=== PATIENT | male | born 1960 | race Caucasian/White ===

== ENCOUNTER 2019-06-05 01:03 | Inpatient (IN) ==
[2019-06-05] MEDS ORDERED: Morphine Sulfate 2 MG/ML SYRINGE IVP ONE (05:08)
[2019-06-05] MEDS ORDERED: *HR* Heparin 5,000 UNIT/ML VIAL IVP ONE ×2 (05:12→05:28)
[2019-06-05] MEDS ORDERED: *HR* Heparin 5,000 UNIT/ML VIAL IVP PRN ×4 (05:12→05:28)
[2019-06-05] MEDS ORDERED: Heparin 25,000 UNIT/250 ML D5W 25,000 UNIT/250 ML IV.SOLN IVC SCH (05:15)
[2019-06-05] MEDS ORDERED: predniSONE 20 MG TABLET PO ONE (05:23)
[2019-06-05] MEDS ORDERED: Azithromycin 500 MG in 0.9 % Sodium Chloride 250 ML IVPB SCH (06:00)
[2019-06-05 06:10] LABS: Basophils % 0.1 %; Eosinophils % 0.1 %; Hematocrit 37.4 % (37.5-50.1); Immature Granulocytes % 2.2 % (0-4); Lymphocytes # 0.5 K/mcL (0.6-4.6); Lymphocytes % 3.1 %; Mean Corpuscular HGB Conc 32.1 g/dL (31.6-35.5); Mean Corpuscular Hemoglobin 27.6 pg (28.0-33.3); Mean Platelet Volume 9.6 fL (9.4-12.4); Monocytes # 0.2 K/mcL (0.0-1.3); Neutrophils # 14.3 K/mcL (1.6-8.9); Platelet Count 171 K/mcL (140-400); Red Blood Count 4.35 M/mcL (4.19-5.50); Red Cell Distribution Width 13.4 % (11.5-14.5); Segmented Neutrophils % 93.5 %; White Blood Count 15.3 K/mcL (4.3-11.1)
[2019-06-05 06:14] LABS: Prothrombin Time 11.7 Seconds (9.4-12.1)
[2019-06-05] MEDS: Ipratropium/Albuterol Neb 3 ML IH SCH ×4 (06:20→15:41)
[2019-06-05 06:26] LABS: Albumin 3.1 g/dL (3.5-5.7); Albumin/Globulin Ratio 1.2 (1.1-2.2); Bilirubin,Direct 0.1 mg/dL (0.0-0.2); Bilirubin,Indirect 0.3 mg/dL (0.0-1.0); Bilirubin,Total 0.4 mg/dL (0.3-1.0); Globulin 2.6 g/dL (2.4-3.5); Total Protein 5.7 g/dL (6.4-8.9)
[2019-06-05 06:27] LABS: BUN/Creatinine Ratio 24 (6-26); Blood Urea Nitrogen 28 mg/dL (6-20); Calcium 8.3 mg/dL (8.6-10.3); Carbon Dioxide 26 mEq/L (23-29); Chloride 94 mEq/L (98-107); Glucose 282 mg/dL (70-105); Osmolality,Calculated 290 (280-300); Potassium 4.2 mEq/L (3.5-5.1); Sodium 132 mEq/L (136-145); eGFR For African Americans > 60 (> 60); eGFR For Non-African Americans > 60 (> 60)
[2019-06-05] MEDS: Heparin 25,000 UNIT/250 ML D5W 25,000 UNIT/250 ML IV.SOLN IVC SCH (06:34)
[2019-06-05] MEDS: Piperacillin/Tazobactam 3.375 GM in 0.9 % Sodium Chloride Mini Bag 100 ML IVPB SCH ×2 (06:36→17:28)
[2019-06-05 06:41] LABS: Troponin I 0.17 ng/mL (< 0.04)
[2019-06-05] MEDS ORDERED: 0.9 % Sodium Chloride 1,000 ML ONE (06:43)
[2019-06-05] MEDS: 0.9 % Sodium Chloride 1,000 ML IVC SCH ×2 (07:40→08:22)
[2019-06-05] MEDS: Insulin LISPRO 300 UNITS/3 ML VIAL SQ SCH ×4 (08:25→20:40)
[2019-06-05] MEDS ORDERED: 0.9 % Sodium Chloride 1,000 ML IVC ONE (08:37)
[2019-06-05 10:24] LABS: Adenovirus Not Detected (Not Detect); Bordetella Pertussis Not Detected (Not Detect); Chlamydophila pneumoniae Not Detected (Not Detect); Coronavirus 229E Not Detected (Not Detect); Coronavirus HKU1 Not Detected (Not Detect); Coronavirus NL63 Not Detected (Not Detect); Coronavirus OC43 Not Detected (Not Detect); Human Metapneumovirus Not Detected (Not Detect); Human Rhinovirus/Enterovirus Not Detected (Not Detect); Influenza A Subtype 2009 H1 Not Detected (Not Detect); Influenza B Not Detected (Not Detect); Mycoplasma pneumoniae Not Detected (Not Detect); Parainfluenza Virus 1 Not Detected (Not Detect); Parainfluenza Virus 2 Not Detected (Not Detect); Parainfluenza Virus 3 Not Detected (Not Detect); Parainfluenza Virus 4 Not Detected (Not Detect); Respiratory Syncytial Virus DETECTED (Not Detect)
[2019-06-05 10:52] LABS: Chol/HDL Ratio 3.7 (0-4.9)
[2019-06-05 11:34] LABS: Estimated Average Glucose 278 mg/dl
[2019-06-05] MEDS: Aspirin Enteric Coated 81 MG Tablet PO SCH (14:13)
[2019-06-05] MEDS: Morphine Sulfate 2 MG/ML SYRINGE IVP PRN ×2 (14:14→20:38)
[2019-06-05] MEDS ORDERED: Lidocaine Viscous Oral Soln 15 ML SOLUTION MM PRN (14:46)
[2019-06-05] MEDS ORDERED: GI Cocktail 40 ML EACH PO ONE (16:06)
[2019-06-05] MEDS ORDERED: Furosemide 40 MG/4 ML VIAL IVP ONE (16:26)
[2019-06-05] MEDS ORDERED: Ondansetron 4 MG/2 ML VIAL IVP PRN (16:26)
[2019-06-05] MEDS ORDERED: Ipratropium Neb 0.5 MG NEBULIZER IH PRN (16:28)
[2019-06-05] MEDS: Levalbuterol Neb 0.63 MG/3 ML IH SCH ×2 (16:37→21:54)
[2019-06-05] MEDS ORDERED: *HR* Metoprolol 5 MG/5 ML VIAL IVP STA (16:39)
[2019-06-05] MEDS ORDERED: *HR* Metoprolol 5 MG/5 ML VIAL IVP ONE (16:42)
[2019-06-05] MEDS: Pantoprazole 40 MG VIAL IVP SCH (18:02)
[2019-06-05 20:33] LABS: Amphetamine Screen,Urine Negative ng/mL (Cutoff=1000); Barbiturate Screen,Urine Negative ng/mL (Cutoff=200); Benzodiazepines Screen,Urine Negative ng/mL (Cutoff=200); Cannabinoid Screen,Urine Negative ng/mL (Cutoff = 50); Cocaine Screen,Urine Negative ng/mL (Cutoff= 300); Opiate Screen,Urine Positive ng/mL (Cutoff=300); Phencyclidine Screen,Urine Negative ng/mL (Cutoff=25)
[2019-06-05] MEDS ORDERED: Furosemide 20 MG/2 ML VIAL IVP ONE (21:00)
[2019-06-05] MEDS ORDERED: Insulin LISPRO 300 UNITS/3 ML VIAL SQ ONE (21:54)
[2019-06-05] MEDS ORDERED: Insulin DETEMIR 100 UNIT/ML X5UNITS SQ ONE (22:03)
[2019-06-05] MEDS: MethylPREDNISolone 40 MG/ML VIAL IVP SCH (23:38)
[2019-06-06] MEDS: Levalbuterol Neb 0.63 MG/3 ML IH SCH ×4 (03:57→21:57)
[2019-06-06] MEDS: Heparin 25,000 UNIT/250 ML D5W 25,000 UNIT/250 ML IV.SOLN IVC SCH (06:24)
[2019-06-06] MEDS: Pantoprazole 40 MG VIAL IVP SCH ×2 (06:25→16:54)
[2019-06-06] MEDS: Azithromycin 250 MG TABLET PO SCH (06:25)
[2019-06-06] MEDS: Insulin LISPRO 300 UNITS/3 ML VIAL SQ SCH ×4 (08:52→21:36)
[2019-06-06] MEDS: MethylPREDNISolone 40 MG/ML VIAL IVP SCH ×3 (08:52→23:55)
[2019-06-06] MEDS: Aspirin Enteric Coated 81 MG Tablet PO SCH (08:52)
[2019-06-06] MEDS: Morphine Sulfate 2 MG/ML SYRINGE IVP PRN ×3 (11:49→21:35)
[2019-06-06 13:13] LABS: Basophils % 0.1 %; Hematocrit 34.9 % (37.5-50.1); Hemoglobin 11.1 g/dL (12.9-16.9); Immature Granulocytes % 1.1 % (0-4); Lymphocytes # 0.6 K/mcL (0.6-4.6); Lymphocytes % 3.4 %; Mean Corpuscular HGB Conc 31.8 g/dL (31.6-35.5); Mean Corpuscular Hemoglobin 27.4 pg (28.0-33.3); Mean Corpuscular Volume 86.2 fL (83.0-100.0); Mean Platelet Volume 9.8 fL (9.4-12.4); Monocytes # 0.4 K/mcL (0.0-1.3); Monocytes % 2.5 %; Platelet Count 160 K/mcL (140-400); Red Blood Count 4.05 M/mcL (4.19-5.50); Red Cell Distribution Width 13.4 % (11.5-14.5); Segmented Neutrophils % 92.9 %; White Blood Count 16.2 K/mcL (4.3-11.1)
[2019-06-06 13:21] LABS: BUN/Creatinine Ratio 27 (6-26); Blood Urea Nitrogen 29 mg/dL (6-20); Calcium 8.2 mg/dL (8.6-10.3); Carbon Dioxide 27 mEq/L (23-29); Chloride 99 mEq/L (98-107); Glucose 257 mg/dL (70-105); Osmolality,Calculated 295 (280-300); Potassium 3.9 mEq/L (3.5-5.1); Sodium 135 mEq/L (136-145); eGFR For African Americans > 60 (> 60); eGFR For Non-African Americans > 60 (> 60)
[2019-06-06] MEDS: Torsemide 20 MG TABLET PO SCH (17:17)
[2019-06-06] MEDS ORDERED: Insulin DETEMIR 100 UNIT/ML X5UNITS SQ SCH (21:00)
[2019-06-06] MEDS ORDERED: Insulin LISPRO 300 UNITS/3 ML VIAL SQ ONE (23:17)
[2019-06-06] MEDS ORDERED: Insulin DETEMIR 100 UNIT/ML X5UNITS SQ ONE (23:18)
[2019-06-07] MEDS: Levalbuterol Neb 0.63 MG/3 ML IH SCH ×4 (03:45→22:24)
[2019-06-07] MEDS: Morphine Sulfate 2 MG/ML SYRINGE IVP PRN ×3 (04:21→17:26)
[2019-06-07 04:42] LABS: Basophils % 0.1 %; Hematocrit 33.1 % (37.5-50.1); Hemoglobin 10.8 g/dL (12.9-16.9); Immature Granulocytes % 1.4 % (0-4); Lymphocytes # 1.1 K/mcL (0.6-4.6); Mean Corpuscular HGB Conc 32.6 g/dL (31.6-35.5); Mean Corpuscular Hemoglobin 27.8 pg (28.0-33.3); Mean Corpuscular Volume 85.1 fL (83.0-100.0); Mean Platelet Volume 9.7 fL (9.4-12.4); Monocytes # 0.8 K/mcL (0.0-1.3); Monocytes % 5.4 %; Neutrophils # 13.1 K/mcL (1.6-8.9); Platelet Count 159 K/mcL (140-400); Red Blood Count 3.89 M/mcL (4.19-5.50); Red Cell Distribution Width 13.3 % (11.5-14.5); Segmented Neutrophils % 86.1 %; White Blood Count 15.3 K/mcL (4.3-11.1)
[2019-06-07 05:00] LABS: BUN/Creatinine Ratio 32 (6-26); Blood Urea Nitrogen 36 mg/dL (6-20); Calcium 8.6 mg/dL (8.6-10.3); Carbon Dioxide 33 mEq/L (23-29); Chloride 96 mEq/L (98-107); Glucose 216 mg/dL (70-105); Osmolality,Calculated 299 (280-300); Potassium 3.7 mEq/L (3.5-5.1); Sodium 137 mEq/L (136-145); eGFR For African Americans > 60 (> 60); eGFR For Non-African Americans > 60 (> 60)
[2019-06-07] MEDS: Azithromycin 250 MG TABLET PO SCH (05:36)
[2019-06-07] MEDS: Pantoprazole 40 MG VIAL IVP SCH ×2 (05:36→17:16)
[2019-06-07] MEDS: Heparin 25,000 UNIT/250 ML D5W 25,000 UNIT/250 ML IV.SOLN IVC SCH (05:38)
[2019-06-07] MEDS: Torsemide 20 MG TABLET PO SCH (08:22)
[2019-06-07] MEDS: Aspirin Enteric Coated 81 MG Tablet PO SCH (08:22)
[2019-06-07] MEDS: Insulin DETEMIR 100 UNIT/ML X5UNITS SQ SCH (08:24)
[2019-06-07] MEDS ORDERED: MethylPREDNISolone 40 MG/ML VIAL IVP SCH (09:00)
[2019-06-07] MEDS: Insulin LISPRO 300 UNITS/3 ML VIAL SQ SCH ×4 (09:47→20:51)
[2019-06-07] MEDS ORDERED: 0.9 % Sodium Chloride 1,000 ML ONE (13:24)
[2019-06-07] MEDS ORDERED: ISOVUE-370 200 ML INFUS..BTL ONE (13:24)
[2019-06-07] MEDS ORDERED: *HR* Heparin 10,000 UNIT/10 ML VIAL ONE (13:24)
[2019-06-07] MEDS ORDERED: Heparin 1,000 UNITS/500 mL 500 ML ONE (13:24)
[2019-06-07] MEDS ORDERED: Nitroglycerin 1,000 MCG/10 ML VIAL IV ONE (13:25)
[2019-06-07] MEDS ORDERED: *HR* Midazolam HCl 2 MG/2 ML VIAL ONE (13:55)
[2019-06-07] MEDS ORDERED: *HR* FentaNYL (PF) 100 MCG/2 ML VIAL ONE (13:55)
[2019-06-07] MEDS ORDERED: Morphine Sulfate 2 MG/ML SYRINGE IVP PRN (23:22)
[2019-06-08 02:21] LABS: Basophils % 0.1 %; Hematocrit 37.5 % (37.5-50.1); Hemoglobin 11.8 g/dL (12.9-16.9); Immature Granulocytes % 0.8 % (0-4); Lymphocytes # 2.5 K/mcL (0.6-4.6); Lymphocytes % 21.2 %; Mean Corpuscular HGB Conc 31.5 g/dL (31.6-35.5); Mean Corpuscular Hemoglobin 27.1 pg (28.0-33.3); Mean Platelet Volume 9.5 fL (9.4-12.4); Monocytes # 1.1 K/mcL (0.0-1.3); Monocytes % 9.8 %; Neutrophils # 7.9 K/mcL (1.6-8.9); Platelet Count 154 K/mcL (140-400); Red Blood Count 4.36 M/mcL (4.19-5.50); Red Cell Distribution Width 13.6 % (11.5-14.5); Segmented Neutrophils % 68.1 %; White Blood Count 11.6 K/mcL (4.3-11.1)
[2019-06-08 02:38] LABS: BUN/Creatinine Ratio 30 (6-26); Blood Urea Nitrogen 30 mg/dL (6-20); Calcium 8.9 mg/dL (8.6-10.3); Carbon Dioxide 33 mEq/L (23-29); Chloride 95 mEq/L (98-107); Glucose 169 mg/dL (70-105); Osmolality,Calculated 294 (280-300); Potassium 3.5 mEq/L (3.5-5.1); Sodium 137 mEq/L (136-145); eGFR For African Americans > 60 (> 60); eGFR For Non-African Americans > 60 (> 60)
[2019-06-08 03:39] LABS: Platelet Estimate Normal (Normal)
[2019-06-08] MEDS: Levalbuterol Neb 0.63 MG/3 ML IH SCH ×4 (03:49→21:45)
[2019-06-08 04:13] LABS: Bilirubin,Urine Negative (Negative); Blood,Urine Trace (Negative); Clarity,Urine Clear (Clear); Color,Urine Yellow (Yellow); Glucose,Urine (UA) 100 mg/dL (Normal); Ketones,Urine Negative (Negative); Leukocyte Esterase,Urine Negative (Negative); Nitrite,Urine Negative (Negative); PH,Urine 6.5 pH Units (5.0-8.0); Protein,Urine 100 mg/dL (Neg-Trace); Specific Gravity,Urine 1.022 (1.010-1.025); Urobilinogen,Urine Normal (Normal)
[2019-06-08 04:16] LABS: Bacteria,Urine None Seen per hpf (None-Few); Hyaline Casts,Urine None Seen per lpf (None-Few); RBC,Urine 0-3 per hpf (0-3); Squamous Epithelial Cell,Urine Few per lpf (None-Few); WBC,Urine 0-3 per hpf (0-3)
[2019-06-08] MEDS: Azithromycin 250 MG TABLET PO SCH (06:05)
[2019-06-08] MEDS: Pantoprazole 40 MG VIAL IVP SCH (06:05)
[2019-06-08] MEDS ORDERED: predniSONE 20 MG TABLET PO SCH (09:00)
[2019-06-08] MEDS: Insulin LISPRO 300 UNITS/3 ML VIAL SQ SCH ×4 (09:04→21:47)
[2019-06-08] MEDS: Aspirin Enteric Coated 81 MG Tablet PO SCH (09:40)
[2019-06-08] MEDS: Torsemide 20 MG TABLET PO SCH (09:40)
[2019-06-08] MEDS: Insulin DETEMIR 100 UNIT/ML X5UNITS SQ SCH (09:47)
[2019-06-08] MEDS ORDERED: lisinopriL 5 MG TABLET PO SCH (10:00)
[2019-06-08] MEDS: amLODIPine 5 MG TABLET PO SCH (12:52)
[2019-06-08] MEDS: Ranolazine 500 MG TAB.ER.12H PO SCH ×2 (12:52→21:18)
[2019-06-08] MEDS ORDERED: *HR* OxyCODONE Immed Rel 5 MG TABLET PO ONE (22:01)
[2019-06-09] MEDS: Levalbuterol Neb 0.63 MG/3 ML IH SCH ×4 (04:46→21:14)
[2019-06-09 05:06] LABS: Basophils % 0.2 %; Eosinophils # 0.1 K/mcL (0.0-0.6); Hematocrit 43.8 % (37.5-50.1); Immature Granulocytes % 0.8 % (0-4); Lymphocytes # 3.1 K/mcL (0.6-4.6); Lymphocytes % 23.4 %; Mean Corpuscular HGB Conc 32.2 g/dL (31.6-35.5); Mean Corpuscular Hemoglobin 27.4 pg (28.0-33.3); Mean Platelet Volume 9.1 fL (9.4-12.4); Monocytes # 0.9 K/mcL (0.0-1.3); Monocytes % 6.9 %; Neutrophils # 8.9 K/mcL (1.6-8.9); Platelet Count 173 K/mcL (140-400); Red Blood Count 5.15 M/mcL (4.19-5.50); Red Cell Distribution Width 13.5 % (11.5-14.5); Segmented Neutrophils % 67.7 %; White Blood Count 13.1 K/mcL (4.3-11.1)
[2019-06-09 05:10] LABS: Hemoglobin 14.1 g/dL (12.9-16.9)
[2019-06-09 05:25] LABS: BUN/Creatinine Ratio 25 (6-26); Blood Urea Nitrogen 25 mg/dL (6-20); Calcium 9.7 mg/dL (8.6-10.3); Carbon Dioxide 36 mEq/L (23-29); Chloride 91 mEq/L (98-107); Glucose 105 mg/dL (70-105); Osmolality,Calculated 285 (280-300); Potassium 3.7 mEq/L (3.5-5.1); Sodium 135 mEq/L (136-145); eGFR For African Americans > 60 (> 60); eGFR For Non-African Americans > 60 (> 60)
[2019-06-09 05:43] LABS: Platelet Estimate Normal (Normal); Reactive Lymphocytes Present (Not Present)
[2019-06-09] MEDS: MethylPREDNISolone 40 MG/ML VIAL IVP SCH (06:43)
[2019-06-09] MEDS: Insulin LISPRO 300 UNITS/3 ML VIAL SQ SCH ×4 (08:10→22:09)
[2019-06-09] MEDS: Aspirin Enteric Coated 81 MG Tablet PO SCH (08:15)
[2019-06-09] MEDS: amLODIPine 5 MG TABLET PO SCH (08:15)
[2019-06-09] MEDS: Torsemide 20 MG TABLET PO SCH (08:15)
[2019-06-09] MEDS: Ranolazine 500 MG TAB.ER.12H PO SCH ×2 (08:15→22:08)
[2019-06-09] MEDS: Insulin DETEMIR 100 UNIT/ML X5UNITS SQ SCH (08:18)
[2019-06-09] MEDS ORDERED: Azithromycin 250 MG TABLET PO SCH (09:00)
[2019-06-09] MEDS ORDERED: Ringers Solution, Lactated 1,000 ML IVC ONE (11:02)
[2019-06-09 14:41] LABS: Bilirubin,Urine Negative (Negative); Blood,Urine Negative (Negative); Clarity,Urine Clear (Clear); Color,Urine Yellow (Yellow); Glucose,Urine (UA) 250 mg/dL (Normal); Ketones,Urine Negative (Negative); Leukocyte Esterase,Urine Negative (Negative); Nitrite,Urine Negative (Negative); Protein,Urine 30 mg/dL (Neg-Trace); Specific Gravity,Urine 1.012 (1.010-1.025); Urobilinogen,Urine Normal (Normal)
[2019-06-09 14:45] LABS: Bacteria,Urine None Seen per hpf (None-Few); Hyaline Casts,Urine None Seen per lpf (None-Few); RBC,Urine 0-3 per hpf (0-3); Squamous Epithelial Cell,Urine None Seen per lpf (None-Few); WBC,Urine 0-3 per hpf (0-3)
[2019-06-09] MEDS: *HR* Heparin 5,000 UNIT/ML VIAL SQ SCH (17:05)
[2019-06-09] MEDS: Ipratropium/Albuterol Neb 3 ML IH SCH ×3 (19:32→23:42)
[2019-06-10] MEDS: Levalbuterol Neb 0.63 MG/3 ML IH SCH ×5 (03:26→21:47)
[2019-06-10] MEDS: Ipratropium/Albuterol Neb 3 ML IH SCH ×6 (03:26→21:52)
[2019-06-10 04:50] LABS: Hematocrit 47.6 % (37.5-50.1); Mean Corpuscular HGB Conc 33.2 g/dL (31.6-35.5); Mean Corpuscular Hemoglobin 27.9 pg (28.0-33.3); Platelet Count 198 K/mcL (140-400); Red Blood Count 5.67 M/mcL (4.19-5.50); Red Cell Distribution Width 13.6 % (11.5-14.5); White Blood Count 13.8 K/mcL (4.3-11.1)
[2019-06-10 05:00] LABS: Hemoglobin 15.8 g/dL (12.9-16.9)
[2019-06-10] MEDS: *HR* Heparin 5,000 UNIT/ML VIAL SQ SCH ×2 (05:10→16:32)
[2019-06-10 05:13] LABS: BUN/Creatinine Ratio 30 (6-26); Blood Urea Nitrogen 31 mg/dL (6-20); Calcium 10.1 mg/dL (8.6-10.3); Carbon Dioxide 35 mEq/L (23-29); Chloride 89 mEq/L (98-107); Glucose 134 mg/dL (70-105); Osmolality,Calculated 291 (280-300); Potassium 3.5 mEq/L (3.5-5.1); Sodium 136 mEq/L (136-145); eGFR For African Americans > 60 (> 60); eGFR For Non-African Americans > 60 (> 60)
[2019-06-10] MEDS: Aspirin Enteric Coated 81 MG Tablet PO SCH (08:59)
[2019-06-10] MEDS: amLODIPine 5 MG TABLET PO SCH (08:59)
[2019-06-10] MEDS: Ranolazine 500 MG TAB.ER.12H PO SCH ×2 (08:59→22:10)
[2019-06-10] MEDS: Torsemide 20 MG TABLET PO SCH (08:59)
[2019-06-10] MEDS: Insulin LISPRO 300 UNITS/3 ML VIAL SQ SCH ×4 (09:00→22:10)
[2019-06-10] MEDS: Insulin DETEMIR 100 UNIT/ML X5UNITS SQ SCH (09:04)
[2019-06-10 13:47] LABS: Troponin I 0.25 ng/mL (< 0.04)
[2019-06-10 13:57] LABS: Thyroid Stimulating Hormone 0.997 mcIU/mL (0.340-5.600)
[2019-06-10] MEDS ORDERED: Nitroglycerin 0.4 MG TAB.SUBL SL PRN (15:01)
[2019-06-10] MEDS ORDERED: Isovue-370 500 ML BOTTLE IVP ONE (16:20)
[2019-06-11 02:11] LABS: Hematocrit 47.2 % (37.5-50.1); Hemoglobin 15.4 g/dL (12.9-16.9); Mean Corpuscular HGB Conc 32.6 g/dL (31.6-35.5); Mean Corpuscular Hemoglobin 26.8 pg (28.0-33.3); Mean Corpuscular Volume 82.2 fL (83.0-100.0); Mean Platelet Volume 9.1 fL (9.4-12.4); Platelet Count 201 K/mcL (140-400); Red Blood Count 5.74 M/mcL (4.19-5.50); Red Cell Distribution Width 13.7 % (11.5-14.5); White Blood Count 10.8 K/mcL (4.3-11.1)
[2019-06-11 02:35] LABS: BUN/Creatinine Ratio 28 (6-26); Blood Urea Nitrogen 38 mg/dL (6-20); Calcium 9.9 mg/dL (8.6-10.3); Carbon Dioxide 35 mEq/L (23-29); Chloride 88 mEq/L (98-107); Glucose 156 mg/dL (70-105); Osmolality,Calculated 278 (280-300); Potassium 3.3 mEq/L (3.5-5.1); Sodium 128 mEq/L (136-145); eGFR For African Americans > 60 (> 60); eGFR For Non-African Americans 54 (> 60)
[2019-06-11 02:51] LABS: Prothrombin Time 11.7 Seconds (9.4-12.1)
[2019-06-11] MEDS ORDERED: Potassium Chloride 20 MEQ, Lidocaine 1% 2 ML in 0.9 % Sodium Chloride 250 ML IVPB ONE (03:20)
[2019-06-11] MEDS: Ipratropium/Albuterol Neb 3 ML IH SCH ×6 (03:38→23:53)
[2019-06-11] MEDS: Levalbuterol Neb 0.63 MG/3 ML IH SCH ×4 (03:38→20:51)
[2019-06-11] MEDS: *HR* Heparin 5,000 UNIT/ML VIAL SQ SCH ×2 (06:15→17:36)
[2019-06-11] MEDS ORDERED: Ringers Solution, Lactated 1,000 ML IVC ONE (07:49)
[2019-06-11] MEDS: Insulin LISPRO 300 UNITS/3 ML VIAL SQ SCH ×4 (08:03→23:19)
[2019-06-11] MEDS: Ranolazine 500 MG TAB.ER.12H PO SCH ×2 (08:27→23:19)
[2019-06-11] MEDS: amLODIPine 5 MG TABLET PO SCH (08:27)
[2019-06-11] MEDS: Aspirin Enteric Coated 81 MG Tablet PO SCH (08:27)
[2019-06-11] MEDS: Insulin DETEMIR 100 UNIT/ML X5UNITS SQ SCH (08:37)
[2019-06-11] MEDS ORDERED: Lidocaine -MPF 2% 2 ML VIAL ONE (11:59)
[2019-06-11] MEDS ORDERED: *HR* Succinylcholine 200 MG/10 ML VIAL IVP ONE (11:59)
[2019-06-11] MEDS ORDERED: Ondansetron 4 MG/2 ML VIAL ONE ×2 (11:59→12:00)
[2019-06-11] MEDS ORDERED: *HR* Propofol 200 MG/20 ML VIAL IVP ONE (12:00)
[2019-06-11] MEDS ORDERED: Dexamethasone 4 MG/ML VIAL ONE (12:22)
[2019-06-11] MEDS ORDERED: *HR* Labetalol 20 MG/4 ML SYRINGE IVP ONE (12:38)
[2019-06-11 23:26] LABS: Calcium 8.6 mg/dL (8.6-10.3); Potassium 4.7 mEq/L (3.5-5.1)
[2019-06-12] MEDS: Levalbuterol Neb 0.63 MG/3 ML IH SCH (03:55)
[2019-06-12] MEDS: Ipratropium/Albuterol Neb 3 ML IH SCH (03:55)
[2019-06-12] MEDS: 0.9 % Sodium Chloride 1,000 ML IVC SCH ×2 (04:30→09:17)
[2019-06-12] MEDS: *HR* Heparin 5,000 UNIT/ML VIAL SQ SCH (04:39)
[2019-06-12 04:56] VITALS: BP 139/80
[2019-06-12 05:38] LABS: Hematocrit 37.1 % (37.5-50.1); Mean Corpuscular HGB Conc 34.5 g/dL (31.6-35.5); Mean Corpuscular Hemoglobin 28.1 pg (28.0-33.3); Mean Corpuscular Volume 81.5 fL (83.0-100.0); Mean Platelet Volume 9.1 fL (9.4-12.4); Platelet Count 177 K/mcL (140-400); Red Blood Count 4.55 M/mcL (4.19-5.50); Red Cell Distribution Width 13.2 % (11.5-14.5); White Blood Count 8.9 K/mcL (4.3-11.1)
[2019-06-12 05:40] LABS: Hemoglobin 12.8 g/dL (12.9-16.9)
[2019-06-12] MEDS ORDERED: Levalbuterol Neb 0.63 MG/3 ML IH PRN (05:52)
[2019-06-12 05:57] LABS: BUN/Creatinine Ratio 35 (6-26); Blood Urea Nitrogen 46 mg/dL (6-20); Calcium 8.6 mg/dL (8.6-10.3); Carbon Dioxide 28 mEq/L (23-29); Chloride 90 mEq/L (98-107); Glucose 336 mg/dL (70-105); Osmolality,Calculated 287 (280-300); Potassium 4.4 mEq/L (3.5-5.1); Sodium 126 mEq/L (136-145); eGFR For African Americans > 60 (> 60); eGFR For Non-African Americans 56 (> 60)
[2019-06-12] MEDS ORDERED: 0.9 % Sodium Chloride 500 ML IVC ONE (07:51)
[2019-06-12] MEDS: Ranolazine 500 MG TAB.ER.12H PO SCH (08:32)
[2019-06-12] MEDS: Aspirin Enteric Coated 81 MG Tablet PO SCH (08:32)
[2019-06-12] MEDS: Insulin LISPRO 300 UNITS/3 ML VIAL SQ SCH (08:33)
[2019-06-12] MEDS: amLODIPine 5 MG TABLET PO SCH (08:33)
[2019-06-12] MEDS: Insulin DETEMIR 100 UNIT/ML X5UNITS SQ SCH (08:43)
[2019-06-16 11:25] LABS: HSV Source BAL LUL
[2019-06-16 11:25] LABS: HSV Source BAL LLL
== END 2019-06-12 12:49 | disposition home or self-care (01) ==
LOC: 2NENU → SUATTDRO 04:00
PROVIDERS: ADMIT Internal Medicine; ATTEND Internal Medicine

== ENCOUNTER 2019-10-02 16:48 | Inpatient (IN) ==
[2019-10-02] MEDS ORDERED: Naloxone 0.4 MG/ML INJ IVP PRN (22:18)
[2019-10-02] MEDS ORDERED: Dextrose Gel 15 GM/37.5 ML TUBE PO PRN ×2 (22:20)
[2019-10-02] MEDS ORDERED: D5% in Water 1,000 ML IVC PRN (22:20)
[2019-10-02] MEDS ORDERED: *HR* Dextrose 50 % in Water (Vial) 50 ML VIAL IVP PRN (22:20)
[2019-10-02 22:49] LABS: Basophils % 0.4 %; Eosinophils # 0.2 K/mcL (0.0-0.6); Eosinophils % 2.4 %; Hemoglobin 13.3 g/dL (12.9-16.9); Immature Granulocytes % 0.8 % (0-4); Lymphocytes # 3.2 K/mcL (0.6-4.6); Lymphocytes % 35.1 %; Mean Corpuscular HGB Conc 32.4 g/dL (31.6-35.5); Mean Corpuscular Hemoglobin 28.2 pg (28.0-33.3); Mean Platelet Volume 9.8 fL (9.4-12.4); Monocytes # 0.9 K/mcL (0.0-1.3); Monocytes % 10.3 %; Neutrophils # 4.6 K/mcL (1.6-8.9); Platelet Count 257 K/mcL (140-400); Red Blood Count 4.71 M/mcL (4.19-5.50); Red Cell Distribution Width 17.5 % (11.5-14.5)
[2019-10-02 22:52] LABS: Prothrombin Time 11.8 Seconds (9.4-12.1)
[2019-10-02] MEDS: Insulin LISPRO 300 UNITS/3 ML VIAL SQ SCH (22:54)
[2019-10-02 22:55] LABS: Activated Partial Thrombo Time 32.1 Seconds (26.0-36.0)
[2019-10-02 23:08] LABS: Alanine Aminotransferase 14 Units/L (7-52); Albumin 3.5 g/dL (3.5-5.7); Albumin/Globulin Ratio 1.2 (1.1-2.2); Alkaline Phosphatase 85 Units/L (34-104); Aspartate Amino Transferase 14 Units/L (13-39); BUN/Creatinine Ratio 10 (6-26); Bilirubin,Total 0.4 mg/dL (0.3-1.0); Blood Urea Nitrogen 11 mg/dL (8-23); Calcium 8.1 mg/dL (8.6-10.3); Carbon Dioxide 27 mEq/L (23-29); Chloride 100 mEq/L (98-107); Glucose 223 mg/dL (70-105); Osmolality,Calculated 282 (280-300); Potassium 3.9 mEq/L (3.5-5.1); Sodium 133 mEq/L (136-145); Total Protein 6.5 g/dL (6.4-8.9); eGFR For African Americans > 60 (> 60); eGFR For Non-African Americans > 60 (> 60)
[2019-10-02 23:09] LABS: Troponin I < 0.03 ng/mL (< 0.04)
[2019-10-02] MEDS ORDERED: *HR* Heparin 5,000 UNIT/ML VIAL IVP PRN ×2 (23:22)
[2019-10-02] MEDS ORDERED: *HR* Heparin 5,000 UNIT/ML VIAL IVP ONE (23:22)
[2019-10-02] MEDS ORDERED: Heparin 25,000 UNIT/250 ML D5W 25,000 UNIT/250 ML IV.SOLN IVC SCH (23:30)
[2019-10-03] MEDS: Morphine Sulfate 2 MG/ML SYRINGE IVP PRN ×2 (03:20→14:07)
[2019-10-03] MEDS: Insulin LISPRO 300 UNITS/3 ML VIAL SQ SCH ×3 (10:35→18:09)
[2019-10-03] MEDS: Aspirin Enteric Coated 81 MG Tablet PO SCH (10:49)
[2019-10-03] MEDS ORDERED: Ibuprofen 400 MG TABLET PO STA (10:53)
[2019-10-03] MEDS ORDERED: Ipratropium/Albuterol Neb 3 ML IH PRN (11:01)
[2019-10-03] MEDS ORDERED: *HR* Labetalol 20 MG/4 ML SYRINGE IVP PRN (11:01)
[2019-10-03] MEDS ORDERED: 0.9 % Sodium Chloride 2,000 ML ONE (14:15)
[2019-10-03] MEDS ORDERED: Heparin 1,000 UNITS/500 mL 500 ML ONE (14:15)
[2019-10-03] MEDS ORDERED: Nitroglycerin 1,000 MCG/10 ML VIAL IV ONE (14:16)
[2019-10-03] MEDS ORDERED: ISOVUE-370 200 ML INFUS..BTL ONE (14:16)
[2019-10-03] MEDS ORDERED: *HR* Heparin 10,000 UNIT/10 ML VIAL ONE (14:16)
[2019-10-03] MEDS ORDERED: *HR* Midazolam HCl 2 MG/2 ML VIAL ONE (15:30)
[2019-10-03] MEDS ORDERED: *HR* FentaNYL (PF) 100 MCG/2 ML VIAL ONE (15:30)
[2019-10-03] MEDS ORDERED: Tirofiban 12.5 MG/250ML 12.5 MG/250 ML BAG ONE (15:53)
[2019-10-03] MEDS: Metoprolol XL (24 HR) Succ 50 MG TAB.ER.24H PO SCH (17:59)
[2019-10-03] MEDS: Isosorbide MONOnitrate (24 HR) 30 MG TAB.ER.24H PO SCH (18:07)
[2019-10-03] MEDS: lisinopriL 20 MG TABLET PO SCH (18:07)
[2019-10-03] MEDS: Ranolazine 500 MG TAB.ER.12H PO SCH (20:18)
[2019-10-03] MEDS: traZODone 50 MG TABLET PO SCH (20:18)
[2019-10-03] MEDS: Budesonide/Formoterol 160/4.5 1 PUFF INH IH SCH (22:06)
[2019-10-04 01:54] LABS: Basophils % 0.5 %; Eosinophils # 0.2 K/mcL (0.0-0.6); Eosinophils % 2.9 %; Hematocrit 39.4 % (37.5-50.1); Hemoglobin 12.4 g/dL (12.9-16.9); Immature Granulocytes % 0.8 % (0-4); Lymphocytes % 27.6 %; Mean Corpuscular HGB Conc 31.5 g/dL (31.6-35.5); Mean Corpuscular Hemoglobin 28.2 pg (28.0-33.3); Mean Corpuscular Volume 89.7 fL (83.0-100.0); Mean Platelet Volume 9.8 fL (9.4-12.4); Monocytes # 0.8 K/mcL (0.0-1.3); Monocytes % 10.7 %; Neutrophils # 4.2 K/mcL (1.6-8.9); Platelet Count 251 K/mcL (140-400); Red Blood Count 4.39 M/mcL (4.19-5.50); Red Cell Distribution Width 17.4 % (11.5-14.5); Segmented Neutrophils % 57.5 %; White Blood Count 7.3 K/mcL (4.3-11.1)
[2019-10-04 02:20] LABS: BUN/Creatinine Ratio 10 (6-26); Blood Urea Nitrogen 15 mg/dL (8-23); Calcium 7.8 mg/dL (8.6-10.3); Carbon Dioxide 28 mEq/L (23-29); Chloride 101 mEq/L (98-107); Glucose 260 mg/dL (70-105); Osmolality,Calculated 290 (280-300); Potassium 4.2 mEq/L (3.5-5.1); Sodium 135 mEq/L (136-145); Troponin I < 0.03 ng/mL (< 0.04); eGFR For African Americans 56 (> 60); eGFR For Non-African Americans 46 (> 60)
[2019-10-04] MEDS: Ringers Solution, Lactated 1,000 ML IVC SCH ×2 (08:15→20:18)
[2019-10-04] MEDS: Morphine Sulfate 2 MG/ML SYRINGE IVP PRN ×3 (08:18→20:23)
[2019-10-04] MEDS: Insulin DETEMIR 100 UNIT/ML X5UNITS SQ SCH ×2 (08:21→20:18)
[2019-10-04] MEDS: Ranolazine 500 MG TAB.ER.12H PO SCH ×2 (08:21→20:40)
[2019-10-04] MEDS: Aspirin Enteric Coated 81 MG Tablet PO SCH (08:21)
[2019-10-04] MEDS: lisinopriL 20 MG TABLET PO SCH (08:22)
[2019-10-04] MEDS: Isosorbide MONOnitrate (24 HR) 30 MG TAB.ER.24H PO SCH (08:22)
[2019-10-04] MEDS: Metoprolol XL (24 HR) Succ 50 MG TAB.ER.24H PO SCH (08:22)
[2019-10-04] MEDS: Insulin LISPRO 300 UNITS/3 ML VIAL SQ SCH ×3 (08:25→16:46)
[2019-10-04] MEDS: Tiotropium 18 MCG inhalation IH SCH (08:29)
[2019-10-04] MEDS ORDERED: amLODIPine 5 MG TABLET PO SCH (09:00)
[2019-10-04] MEDS: Budesonide/Formoterol 160/4.5 1 PUFF INH IH SCH ×2 (09:19→22:49)
[2019-10-04] MEDS: *HR* Heparin 5,000 UNIT/ML VIAL SQ SCH (16:46)
[2019-10-04] MEDS: traZODone 50 MG TABLET PO SCH (20:40)
[2019-10-05 02:25] LABS: Basophils % 0.4 %; Eosinophils # 0.2 K/mcL (0.0-0.6); Eosinophils % 2.7 %; Hemoglobin 11.7 g/dL (12.9-16.9); Immature Granulocytes % 0.7 % (0-4); Lymphocytes # 2.4 K/mcL (0.6-4.6); Lymphocytes % 33.7 %; Mean Corpuscular HGB Conc 31.6 g/dL (31.6-35.5); Mean Corpuscular Hemoglobin 27.9 pg (28.0-33.3); Mean Corpuscular Volume 88.1 fL (83.0-100.0); Mean Platelet Volume 9.4 fL (9.4-12.4); Monocytes # 0.7 K/mcL (0.0-1.3); Monocytes % 9.8 %; Neutrophils # 3.8 K/mcL (1.6-8.9); Platelet Count 205 K/mcL (140-400); Red Cell Distribution Width 17.2 % (11.5-14.5); Segmented Neutrophils % 52.7 %; White Blood Count 7.1 K/mcL (4.3-11.1)
[2019-10-05 02:36] LABS: BUN/Creatinine Ratio 15 (6-26); Blood Urea Nitrogen 17 mg/dL (8-23); Calcium 8.2 mg/dL (8.6-10.3); Carbon Dioxide 28 mEq/L (23-29); Chloride 103 mEq/L (98-107); Glucose 161 mg/dL (70-105); Osmolality,Calculated 287 (280-300); Potassium 3.7 mEq/L (3.5-5.1); Sodium 136 mEq/L (136-145); eGFR For African Americans > 60 (> 60); eGFR For Non-African Americans > 60 (> 60)
[2019-10-05] MEDS: *HR* Heparin 5,000 UNIT/ML VIAL SQ SCH (05:14)
[2019-10-05 07:38] VITALS: BP 176/83
[2019-10-05] MEDS: Tiotropium 18 MCG inhalation IH SCH (08:45)
[2019-10-05] MEDS: Ranolazine 500 MG TAB.ER.12H PO SCH (08:45)
[2019-10-05] MEDS: lisinopriL 20 MG TABLET PO SCH (08:45)
[2019-10-05] MEDS: Metoprolol XL (24 HR) Succ 50 MG TAB.ER.24H PO SCH (08:45)
[2019-10-05] MEDS: Aspirin Enteric Coated 81 MG Tablet PO SCH (08:45)
[2019-10-05] MEDS: Isosorbide MONOnitrate (24 HR) 30 MG TAB.ER.24H PO SCH (08:45)
[2019-10-05] MEDS: Insulin DETEMIR 100 UNIT/ML X5UNITS SQ SCH (08:46)
[2019-10-05] MEDS: Insulin LISPRO 300 UNITS/3 ML VIAL SQ SCH (08:52)
[2019-10-05] MEDS: Budesonide/Formoterol 160/4.5 1 PUFF INH IH SCH (10:46)
== END 2019-10-05 10:41 | disposition home or self-care (01) | DRG 175 ==
LOC: CDU → 3BNU → SUATTDRO 19:08 → 2NNU 10-03 17:19
PROVIDERS: ADMIT Pharmacist; ATTEND Internal Medicine

== ENCOUNTER 2019-10-28 16:00 | Observation (INO) ==
[2019-10-28] MEDS ORDERED: Ondansetron 4 MG/2 ML VIAL IVP PRN (21:21)
[2019-10-28] MEDS ORDERED: Naloxone 0.4 MG/ML INJ IVP PRN (21:21)
[2019-10-28] MEDS ORDERED: Morphine Sulfate 2 MG/ML SYRINGE IVP PRN (21:35)
[2019-10-28] MEDS ORDERED: D5% in Water 1,000 ML IVC PRN (21:57)
[2019-10-28] MEDS ORDERED: *HR* Dextrose 50 % in Water (Vial) 50 ML VIAL IVP PRN (21:57)
[2019-10-28] MEDS ORDERED: Dextrose Gel 15 GM/37.5 ML TUBE PO PRN ×2 (21:57)
[2019-10-28] MEDS ORDERED: Isovue-370 500 ML BOTTLE IVP ONE (22:26)
[2019-10-28] MEDS: Budesonide/Formoterol 160/4.5 1 PUFF INH IH SCH (22:28)
[2019-10-28] MEDS: Morphine Sulfate 2 MG/ML SYRINGE IVP PRN (22:50)
[2019-10-28 23:46] LABS: Bordetella Pertussis Not Detected (Not Detect); Chlamydophila pneumoniae Not Detected (Not Detect); Coronavirus 229E Not Detected (Not Detect); Coronavirus HKU1 Not Detected (Not Detect); Coronavirus NL63 Not Detected (Not Detect); Coronavirus OC43 Not Detected (Not Detect); Human Metapneumovirus Not Detected (Not Detect); Human Rhinovirus/Enterovirus Not Detected (Not Detect); Influenza A Subtype 2009 H1 Not Detected (Not Detect); Influenza B Not Detected (Not Detect); Mycoplasma pneumoniae Not Detected (Not Detect); Parainfluenza Virus 1 Not Detected (Not Detect); Parainfluenza Virus 2 Not Detected (Not Detect); Parainfluenza Virus 3 Not Detected (Not Detect); Parainfluenza Virus 4 Not Detected (Not Detect); Respiratory Syncytial Virus Not Detected (Not Detect); SARS-CoV-2 Not Detected (Not Detect)
[2019-10-28 23:48] LABS: Adenovirus Not Detected (Not Detect)
[2019-10-29] MEDS: Insulin LISPRO 300 UNITS/3 ML VIAL SQ SCH ×3 (01:54→15:46)
[2019-10-29] MEDS: Morphine Sulfate 2 MG/ML SYRINGE IVP PRN (03:16)
[2019-10-29 03:33] LABS: Prothrombin Time 11.1 Seconds (9.4-12.1)
[2019-10-29 03:35] LABS: Activated Partial Thrombo Time 32.2 Seconds (26.0-36.0)
[2019-10-29 03:39] LABS: Basophils % 0.4 %; Eosinophils # 0.2 K/mcL (0.0-0.6); Eosinophils % 2.5 %; Hematocrit 39.8 % (37.5-50.1); Hemoglobin 13.1 g/dL (12.9-16.9); Immature Granulocytes % 0.5 % (0-4); Lymphocytes # 2.1 K/mcL (0.6-4.6); Lymphocytes % 29.3 %; Mean Corpuscular HGB Conc 32.9 g/dL (31.6-35.5); Mean Corpuscular Hemoglobin 29.3 pg (28.0-33.3); Mean Platelet Volume 9.5 fL (9.4-12.4); Monocytes # 0.6 K/mcL (0.0-1.3); Monocytes % 7.7 %; Neutrophils # 4.4 K/mcL (1.6-8.9); Platelet Count 200 K/mcL (140-400); Red Blood Count 4.47 M/mcL (4.19-5.50); Red Cell Distribution Width 15.8 % (11.5-14.5); Segmented Neutrophils % 59.6 %; White Blood Count 7.3 K/mcL (4.3-11.1)
[2019-10-29 03:58] LABS: Alanine Aminotransferase 13 Units/L (7-52); Albumin 3.2 g/dL (3.5-5.7); Albumin/Globulin Ratio 1.3 (1.1-2.2); Alkaline Phosphatase 71 Units/L (34-104); Aspartate Amino Transferase 13 Units/L (13-39); BUN/Creatinine Ratio 12 (6-26); Bilirubin,Total 0.3 mg/dL (0.3-1.0); Blood Urea Nitrogen 11 mg/dL (8-23); Calcium 8.5 mg/dL (8.6-10.3); Carbon Dioxide 27 mEq/L (23-29); Chloride 104 mEq/L (98-107); Globulin 2.5 g/dL (2.4-3.5); Glucose 133 mg/dL (70-105); Osmolality,Calculated 285 (280-300); Sodium 137 mEq/L (136-145); Total Protein 5.7 g/dL (6.4-8.9); eGFR For African Americans > 60 (> 60); eGFR For Non-African Americans > 60 (> 60)
[2019-10-29] MEDS: *HR* Heparin 5,000 UNIT/ML VIAL SQ SCH ×2 (07:58→15:46)
[2019-10-29] MEDS ORDERED: Ondansetron 4 MG/2 ML VIAL IVP ONE (08:44)
[2019-10-29] MEDS ORDERED: lisinopriL 20 MG TABLET PO SCH (09:00)
[2019-10-29] MEDS ORDERED: Aspirin Enteric Coated 81 MG Tablet PO SCH (09:00)
[2019-10-29] MEDS ORDERED: Ranolazine 500 MG TAB.ER.12H PO SCH (09:00)
[2019-10-29] MEDS ORDERED: amLODIPine 5 MG TABLET PO SCH (09:00)
[2019-10-29] MEDS ORDERED: OMEGA ACID ETHYL ESTERS PO SCH (09:00)
[2019-10-29] MEDS ORDERED: Isosorbide MONOnitrate (24 HR) 30 MG TAB.ER.24H PO SCH (09:00)
[2019-10-29] MEDS ORDERED: Metoprolol XL (24 HR) Succ 50 MG TAB.ER.24H PO SCH (09:00)
[2019-10-29] MEDS: Budesonide/Formoterol 160/4.5 1 PUFF INH IH SCH (09:54)
[2019-10-29] MEDS ORDERED: Tiotropium 18 MCG inhalation IH SCH (10:00)
[2019-10-29] MEDS ORDERED: *HR* Promethazine 25 MG/ML VIAL IVP ONE (10:14)
[2019-10-29] MEDS ORDERED: Regadenoson 0.4 MG/5 ML SYRINGE IVP ONE ×2 (11:14→11:52)
[2019-10-29 16:53] VITALS: BP 138/75
[2019-10-29] MEDS ORDERED: Isosorbide MONOnitrate (24 HR) 60 MG TAB.ER.24H PO SCH (21:00)
[2019-10-29] MEDS ORDERED: traZODone 50 MG TABLET PO SCH (21:00)
[2019-10-29] MEDS ORDERED: Insulin DETEMIR 100 UNIT/ML X5UNITS SQ SCH (21:00)
== END 2019-10-29 17:41 | disposition home health service (06) ==
LOC: 3BNU → SUATTDRO 18:28
PROVIDERS: ADMIT Internal Medicine; ATTEND Internal Medicine

== ENCOUNTER 2019-12-06 17:21 | Observation (INO) ==
[2019-12-06] MEDS ORDERED: Acetaminophen 325 MG TABLET PO PRN (20:56)
[2019-12-06] MEDS ORDERED: Naloxone 0.4 MG/ML INJ IVP PRN (20:56)
[2019-12-06] MEDS ORDERED: Ondansetron 4 MG/2 ML VIAL IVP PRN (20:56)
[2019-12-06] MEDS ORDERED: *HR* Heparin 5,000 UNIT/ML VIAL IVP PRN ×2 (21:01)
[2019-12-06] MEDS ORDERED: *HR* Heparin 5,000 UNIT/ML VIAL IVP ONE (21:01)
[2019-12-06] MEDS ORDERED: Nitroglycerin 0.4 MG TAB.SUBL SL PRN (21:07)
[2019-12-06] MEDS ORDERED: Nitroglycerin 0.4 MG TAB.SUBL SL ONE (21:09)
[2019-12-06] MEDS ORDERED: Heparin 25,000UNIT/250ML 1/2NS 25,000 UNIT/250 ML IV.SOLN IVC SCH (21:15)
[2019-12-06] MEDS ORDERED: Perflutren Lipid Microsphere 1.3 ML in 0.9 % Sodium Chloride 8.7 ML IVP PRN (21:19)
[2019-12-06 21:21] LABS: Hematocrit 37.8 % (37.5-50.1); Hemoglobin 13.1 g/dL (12.9-16.9); Mean Corpuscular HGB Conc 34.7 g/dL (31.6-35.5); Mean Corpuscular Hemoglobin 31.8 pg (28.0-33.3); Mean Corpuscular Volume 91.7 fL (83.0-100.0); Mean Platelet Volume 9.8 fL (9.4-12.4); Platelet Count 226 K/mcL (140-400); Red Blood Count 4.12 M/mcL (4.19-5.50); Red Cell Distribution Width 13.6 % (11.5-14.5)
[2019-12-06] MEDS ORDERED: INSULIN DEGLUDEC 80 UNIT SQ SCH (21:30)
[2019-12-06] MEDS ORDERED: Morphine Sulfate 2 MG/ML SYRINGE IVP PRN (21:30)
[2019-12-06] MEDS ORDERED: Dextrose Gel 15 GM/37.5 ML TUBE PO PRN ×2 (21:31)
[2019-12-06] MEDS ORDERED: *HR* Dextrose 50 % in Water (Vial) 50 ML VIAL IVP PRN (21:31)
[2019-12-06] MEDS ORDERED: D5% in Water 1,000 ML IVC PRN (21:31)
[2019-12-06 21:32] LABS: Prothrombin Time 11.9 Seconds (9.4-12.1)
[2019-12-06 21:35] LABS: Heparin anti-factor XA UFH 1.3 IU/mL (0.30-0.70)
[2019-12-06] MEDS: Budesonide/Formoterol 160/4.5 1 PUFF INH IH SCH (21:42)
[2019-12-06] MEDS: 0.9 % Sodium Chloride 1,000 ML IVC SCH (21:57)
[2019-12-06] MEDS: Insulin LISPRO 300 UNITS/3 ML VIAL SQ SCH (21:58)
[2019-12-06 22:15] LABS: Bacteria,Urine Few per hpf (None-Few); Bilirubin,Urine Negative (Negative); Blood,Urine Negative (Negative); Clarity,Urine Clear (Clear); Color,Urine Light-Yellow (Yellow); Glucose,Urine (UA) >=1000 mg/dL (Normal); Ketones,Urine Negative (Negative); Leukocyte Esterase,Urine Small (Negative); Mucus,Urine Few per lpf (None-Few); Nitrite,Urine Negative (Negative); Protein,Urine 30 mg/dL (Neg-Trace); RBC,Urine 0-3 per hpf (0-3); Specific Gravity,Urine > 1.030 (1.010-1.025); Sperm,Urine Present (None Seen); Squamous Epithelial Cell,Urine Few per hpf (None-Few); Urobilinogen,Urine Normal (Normal)
[2019-12-06] MEDS: Insulin DETEMIR 100 UNIT/ML X5UNITS SQ SCH (23:11)
[2019-12-07 05:02] LABS: Basophils # 0.1 K/mcL (0.0-0.2); Basophils % 0.8 %; Eosinophils # 0.2 K/mcL (0.0-0.6); Eosinophils % 2.4 %; Hematocrit 38.4 % (37.5-50.1); Hemoglobin 12.6 g/dL (12.9-16.9); Immature Granulocytes % 1.3 % (0-4); Lymphocytes # 2.6 K/mcL (0.6-4.6); Lymphocytes % 34.8 %; Mean Corpuscular HGB Conc 32.8 g/dL (31.6-35.5); Mean Corpuscular Volume 91.4 fL (83.0-100.0); Mean Platelet Volume 9.3 fL (9.4-12.4); Monocytes # 0.7 K/mcL (0.0-1.3); Monocytes % 8.9 %; Neutrophils # 3.9 K/mcL (1.6-8.9); Platelet Count 194 K/mcL (140-400); Red Cell Distribution Width 13.3 % (11.5-14.5); Segmented Neutrophils % 51.8 %; White Blood Count 7.4 K/mcL (4.3-11.1)
[2019-12-07 05:10] LABS: Prothrombin Time 10.9 Seconds (9.4-12.1)
[2019-12-07 05:20] LABS: BUN/Creatinine Ratio 20 (6-26); Blood Urea Nitrogen 24 mg/dL (8-23); Calcium 8.9 mg/dL (8.6-10.3); Carbon Dioxide 28 mEq/L (23-29); Chloride 103 mEq/L (98-107); Cholesterol 271 mg/dL (< 200); Glucose 157 mg/dL (70-105); HDL Cholesterol 30 mg/dL (40-59); LDL Cholesterol,Calculated 167 mg/dL (< 100); Magnesium 1.7 mg/dL (1.6-2.6); Osmolality,Calculated 289 (280-300); Phosphorous 4.6 mg/dL (2.7-4.5); Potassium 4.4 mEq/L (3.5-5.1); Sodium 136 mEq/L (136-145); Triglycerides 371 mg/dL (< 150); eGFR For African Americans > 60 (> 60); eGFR For Non-African Americans > 60 (> 60)
[2019-12-07] MEDS: Budesonide/Formoterol 160/4.5 1 PUFF INH IH SCH ×2 (08:18→20:20)
[2019-12-07] MEDS: Tiotropium 18 MCG inhalation IH SCH (08:18)
[2019-12-07] MEDS: Insulin LISPRO 300 UNITS/3 ML VIAL SQ SCH ×4 (08:24→21:06)
[2019-12-07] MEDS: Ranolazine 500 MG TAB.ER.12H PO SCH ×2 (08:39→21:17)
[2019-12-07] MEDS: Isosorbide MONOnitrate (24 HR) 60 MG TAB.ER.24H PO SCH ×2 (08:39→21:17)
[2019-12-07] MEDS: Metoprolol XL (24 HR) Succ 50 MG TAB.ER.24H PO SCH ×2 (08:40→21:17)
[2019-12-07] MEDS: Aspirin Enteric Coated 81 MG Tablet PO SCH (08:40)
[2019-12-07] MEDS ORDERED: amLODIPine 5 MG TABLET PO SCH (09:00)
[2019-12-07] MEDS: Insulin DETEMIR 100 UNIT/ML X5UNITS SQ SCH ×2 (11:29→21:17)
[2019-12-07] MEDS: lisinopriL 20 MG TABLET PO SCH (11:56)
[2019-12-07] MEDS: 0.9 % Sodium Chloride 1,000 ML IVC SCH (13:39)
[2019-12-07] MEDS: *HR* Heparin 5,000 UNIT/ML VIAL SQ SCH (16:50)
[2019-12-07] MEDS: traZODone 50 MG TABLET PO SCH (21:17)
[2019-12-08 01:04] LABS: Hematocrit 35.2 % (37.5-50.1); Hemoglobin 11.7 g/dL (12.9-16.9); Mean Corpuscular HGB Conc 33.2 g/dL (31.6-35.5); Mean Corpuscular Hemoglobin 31.6 pg (28.0-33.3); Mean Corpuscular Volume 95.1 fL (83.0-100.0); Mean Platelet Volume 9.6 fL (9.4-12.4); Platelet Count 189 K/mcL (140-400); Red Cell Distribution Width 13.5 % (11.5-14.5); White Blood Count 8.6 K/mcL (4.3-11.1)
[2019-12-08 01:24] LABS: BUN/Creatinine Ratio 17 (6-26); Blood Urea Nitrogen 17 mg/dL (8-23); Calcium 8.5 mg/dL (8.6-10.3); Carbon Dioxide 23 mEq/L (23-29); Chloride 103 mEq/L (98-107); Glucose 165 mg/dL (70-105); Osmolality,Calculated 281 (280-300); Potassium 4.8 mEq/L (3.5-5.1); Sodium 133 mEq/L (136-145); eGFR For African Americans > 60 (> 60); eGFR For Non-African Americans > 60 (> 60)
[2019-12-08] MEDS: *HR* Heparin 5,000 UNIT/ML VIAL SQ SCH ×2 (05:25→16:14)
[2019-12-08] MEDS: Budesonide/Formoterol 160/4.5 1 PUFF INH IH SCH ×2 (07:45→20:11)
[2019-12-08] MEDS: Tiotropium 18 MCG inhalation IH SCH (07:45)
[2019-12-08] MEDS: Insulin LISPRO 300 UNITS/3 ML VIAL SQ SCH ×4 (08:50→20:40)
[2019-12-08] MEDS ORDERED: lisinopriL 20 MG TABLET PO SCH (09:00)
[2019-12-08] MEDS: Isosorbide MONOnitrate (24 HR) 60 MG TAB.ER.24H PO SCH ×2 (11:13→20:46)
[2019-12-08] MEDS: Metoprolol XL (24 HR) Succ 50 MG TAB.ER.24H PO SCH ×2 (11:13→20:46)
[2019-12-08] MEDS: Ranolazine 500 MG TAB.ER.12H PO SCH ×2 (11:13→20:46)
[2019-12-08] MEDS: Aspirin Enteric Coated 81 MG Tablet PO SCH (11:13)
[2019-12-08] MEDS: amLODIPine 5 MG TABLET PO SCH (11:14)
[2019-12-08] MEDS: lisinopriL 20 MG TABLET PO SCH (11:14)
[2019-12-08] MEDS: Insulin DETEMIR 100 UNIT/ML X5UNITS SQ SCH ×2 (11:14→20:47)
[2019-12-08] MEDS ORDERED: 0.9 % Sodium Chloride 2,000 ML ONE (13:38)
[2019-12-08] MEDS ORDERED: ISOVUE-370 200 ML INFUS..BTL ONE ×2 (13:39→15:21)
[2019-12-08] MEDS ORDERED: Nitroglycerin 1,000 MCG/10 ML VIAL IV ONE (13:39)
[2019-12-08] MEDS ORDERED: *HR* Heparin 10,000 UNIT/10 ML VIAL ONE (13:39)
[2019-12-08] MEDS ORDERED: Ergocalciferol (VIT D2) 50,000 UNIT (1.25MG) CAP PO SCH (13:39)
[2019-12-08] MEDS ORDERED: Heparin 1,000 UNITS/500 mL 500 ML ONE (13:39)
[2019-12-08] MEDS ORDERED: *HR* FentaNYL (PF) 100 MCG/2 ML VIAL ONE (14:30)
[2019-12-08] MEDS ORDERED: *HR* Midazolam HCl 2 MG/2 ML VIAL ONE (14:30)
[2019-12-08] MEDS ORDERED: Tirofiban 12.5 MG/250ML 12.5 MG/250 ML BAG IVC SCH (14:45)
[2019-12-08] MEDS ORDERED: Tirofiban 12.5 MG/250ML 12.5 MG/250 ML BAG ONE (15:19)
[2019-12-08] MEDS ORDERED: *HR* Atropine Sulfate 1 MG/10 ML SYRINGE ONE (17:05)
[2019-12-08] MEDS: traZODone 50 MG TABLET PO SCH (20:46)
[2019-12-09] MEDS: *HR* Heparin 5,000 UNIT/ML VIAL SQ SCH (05:47)
[2019-12-09 07:05] VITALS: BP 142/66
[2019-12-09] MEDS: Aspirin Enteric Coated 81 MG Tablet PO SCH (07:49)
[2019-12-09] MEDS: lisinopriL 20 MG TABLET PO SCH (07:49)
[2019-12-09] MEDS: Budesonide/Formoterol 160/4.5 1 PUFF INH IH SCH (07:49)
[2019-12-09] MEDS: Isosorbide MONOnitrate (24 HR) 60 MG TAB.ER.24H PO SCH (07:49)
[2019-12-09] MEDS: Metoprolol XL (24 HR) Succ 50 MG TAB.ER.24H PO SCH (07:49)
[2019-12-09] MEDS: amLODIPine 5 MG TABLET PO SCH (07:49)
[2019-12-09] MEDS: Ranolazine 500 MG TAB.ER.12H PO SCH (07:49)
[2019-12-09] MEDS: Insulin LISPRO 300 UNITS/3 ML VIAL SQ SCH (07:50)
[2019-12-09] MEDS: Insulin DETEMIR 100 UNIT/ML X5UNITS SQ SCH (07:50)
[2019-12-09] MEDS: Tiotropium 18 MCG inhalation IH SCH (07:51)
[2019-12-10] MEDS ORDERED: Isosorbide MONOnitrate (24 HR) 60 MG TAB.ER.24H PO SCH (09:00)
== END 2019-12-09 12:14 | disposition home or self-care (01) ==
LOC: 3BNU → SUATTDRO 19:57 → 2NNU 12-08 16:12
PROVIDERS: ADMIT Internal Medicine; ATTEND Internal Medicine

== ENCOUNTER 2020-02-08 14:19 | Inpatient (IN) ==
[2020-02-08] MEDS ORDERED: Heparin 25,000UNIT/250ML 1/2NS 25,000 UNIT/250 ML IV.SOLN IVC SCH (17:15)
[2020-02-08] MEDS ORDERED: Naloxone 0.4 MG/ML INJ IVP PRN (17:25)
[2020-02-08] MEDS ORDERED: *HR* Dextrose 50 % in Water (Vial) 50 ML VIAL IVP PRN (17:29)
[2020-02-08] MEDS ORDERED: Dextrose Gel 15 GM/37.5 ML TUBE PO PRN ×2 (17:29)
[2020-02-08] MEDS ORDERED: D5% in Water 1,000 ML IVC PRN (17:29)
[2020-02-08] MEDS ORDERED: Morphine Sulfate 2 MG/ML SYRINGE IVP ONE (18:08)
[2020-02-08] MEDS ORDERED: *HR* Heparin 5,000 UNIT/ML VIAL IVP PRN ×2 (18:25)
[2020-02-08] MEDS ORDERED: 0.9 % Sodium Chloride 500 ML IVC SCH (18:45)
[2020-02-08] MEDS: Ranolazine 500 MG TAB.ER.12H PO SCH (19:48)
[2020-02-08] MEDS: Metoprolol XL (24 HR) Succ 50 MG TAB.ER.24H PO SCH (19:48)
[2020-02-09] MEDS: Morphine Sulfate 2 MG/ML SYRINGE IVP PRN ×3 (00:34→22:56)
[2020-02-09 00:50] LABS: Basophils % 0.5 %; Eosinophils # 0.2 K/mcL (0.0-0.6); Eosinophils % 1.9 %; Hematocrit 33.2 % (37.5-50.1); Hemoglobin 11.5 g/dL (12.9-16.9); Immature Granulocytes % 0.5 % (0-4); Lymphocytes # 2.4 K/mcL (0.6-4.6); Lymphocytes % 30.8 %; Mean Corpuscular HGB Conc 34.6 g/dL (31.6-35.5); Mean Corpuscular Hemoglobin 32.5 pg (28.0-33.3); Mean Corpuscular Volume 93.8 fL (83.0-100.0); Mean Platelet Volume 9.7 fL (9.4-12.4); Monocytes # 0.7 K/mcL (0.0-1.3); Monocytes % 9.1 %; Neutrophils # 4.4 K/mcL (1.6-8.9); Platelet Count 197 K/mcL (140-400); Red Blood Count 3.54 M/mcL (4.19-5.50); Segmented Neutrophils % 57.2 %; White Blood Count 7.8 K/mcL (4.3-11.1)
[2020-02-09 01:04] LABS: BUN/Creatinine Ratio 9 (6-26); Blood Urea Nitrogen 12 mg/dL (8-23); Calcium 7.9 mg/dL (8.6-10.3); Carbon Dioxide 27 mEq/L (23-29); Chloride 102 mEq/L (98-107); Glucose 197 mg/dL (70-105); Osmolality,Calculated 285 (280-300); Potassium 3.7 mEq/L (3.5-5.1); Sodium 135 mEq/L (136-145); eGFR For African Americans > 60 (> 60); eGFR For Non-African Americans 57 (> 60)
[2020-02-09 01:35] LABS: Troponin I 0.06 ng/mL (< 0.04)
[2020-02-09] MEDS: Aspirin 81 MG TAB.CHEW PO SCH (07:39)
[2020-02-09] MEDS: Ranolazine 500 MG TAB.ER.12H PO SCH ×2 (07:39→22:49)
[2020-02-09] MEDS: Nitroglycerin 0.2 MG PATCH.TD24 TD SCH (07:39)
[2020-02-09] MEDS: Metoprolol XL (24 HR) Succ 50 MG TAB.ER.24H PO SCH ×2 (07:39→22:50)
[2020-02-09] MEDS: Insulin LISPRO 300 UNITS/3 ML VIAL SQ SCH ×3 (07:47→17:33)
[2020-02-09] MEDS ORDERED: Ipratropium/Albuterol Neb 3 ML IH PRN (07:56)
[2020-02-09] MEDS ORDERED: cefTRIAXone 1,000 MG in Water for inj. (sterile) 10 ML IVP SCH (09:00)
[2020-02-09] MEDS: Furosemide 20 MG TABLET PO SCH (09:39)
[2020-02-09] MEDS: amLODIPine 5 MG TABLET PO SCH (09:39)
[2020-02-09] MEDS ORDERED: Heparin 1,000 UNITS/500 mL 500 ML ONE (10:55)
[2020-02-09] MEDS ORDERED: *HR* Heparin 10,000 UNIT/10 ML VIAL ONE (10:55)
[2020-02-09] MEDS ORDERED: *HR* FentaNYL (PF) 100 MCG/2 ML VIAL ONE (10:55)
[2020-02-09] MEDS ORDERED: 0.9 % Sodium Chloride 2,000 ML ONE (10:55)
[2020-02-09] MEDS ORDERED: ISOVUE-370 200 ML INFUS..BTL ONE ×2 (10:55→11:33)
[2020-02-09] MEDS ORDERED: *HR* Midazolam HCl 2 MG/2 ML VIAL ONE (10:55)
[2020-02-09] MEDS ORDERED: Nitroglycerin 1,000 MCG/10 ML VIAL IV ONE (10:56)
[2020-02-09] MEDS ORDERED: Tirofiban 12.5 MG/250ML 12.5 MG/250 ML BAG ONE (11:33)
[2020-02-09] MEDS ORDERED: Tirofiban 12.5 MG/250ML 12.5 MG/250 ML BAG IVC SCH (12:15)
[2020-02-09] MEDS ORDERED: Ondansetron 4 MG/2 ML VIAL IVP PRN (18:28)
[2020-02-09] MEDS: traZODone 50 MG TABLET PO SCH (22:49)
[2020-02-10 02:37] LABS: Hematocrit 38.9 % (37.5-50.1); Mean Corpuscular HGB Conc 33.7 g/dL (31.6-35.5); Mean Corpuscular Hemoglobin 31.2 pg (28.0-33.3); Mean Corpuscular Volume 92.6 fL (83.0-100.0); Mean Platelet Volume 9.5 fL (9.4-12.4); Platelet Count 221 K/mcL (140-400); White Blood Count 8.7 K/mcL (4.3-11.1)
[2020-02-10 02:38] LABS: Hemoglobin 13.1 g/dL (12.9-16.9)
[2020-02-10 02:52] LABS: BUN/Creatinine Ratio 10 (6-26); Blood Urea Nitrogen 10 mg/dL (8-23); Calcium 9.1 mg/dL (8.6-10.3); Carbon Dioxide 29 mEq/L (23-29); Chloride 100 mEq/L (98-107); Glucose 161 mg/dL (70-105); Osmolality,Calculated 285 (280-300); Potassium 3.8 mEq/L (3.5-5.1); Sodium 136 mEq/L (136-145); eGFR For African Americans > 60 (> 60); eGFR For Non-African Americans > 60 (> 60)
[2020-02-10] MEDS: Nitroglycerin 0.2 MG PATCH.TD24 TD SCH (08:05)
[2020-02-10] MEDS: Aspirin 81 MG TAB.CHEW PO SCH (08:06)
[2020-02-10] MEDS: Metoprolol XL (24 HR) Succ 50 MG TAB.ER.24H PO SCH ×2 (08:06→19:58)
[2020-02-10] MEDS: Furosemide 20 MG TABLET PO SCH (08:06)
[2020-02-10] MEDS: Ranolazine 500 MG TAB.ER.12H PO SCH ×2 (08:06→19:58)
[2020-02-10] MEDS: amLODIPine 5 MG TABLET PO SCH (08:06)
[2020-02-10] MEDS: Insulin LISPRO 300 UNITS/3 ML VIAL SQ SCH ×3 (08:09→18:10)
[2020-02-10] MEDS: *HR* Heparin 5,000 UNIT/ML VIAL SQ SCH (18:12)
[2020-02-10] MEDS: traZODone 50 MG TABLET PO SCH (19:58)
[2020-02-10] MEDS ORDERED: Isosorbide MONOnitrate (24 HR) 60 MG TAB.ER.24H PO SCH (21:00)
[2020-02-10] MEDS: Morphine Sulfate 2 MG/ML SYRINGE IVP PRN (21:35)
[2020-02-11] MEDS: *HR* Heparin 5,000 UNIT/ML VIAL SQ SCH (05:10)
[2020-02-11 07:34] VITALS: BP 124/69
[2020-02-11] MEDS: Ranolazine 500 MG TAB.ER.12H PO SCH (07:50)
[2020-02-11] MEDS: Metoprolol XL (24 HR) Succ 50 MG TAB.ER.24H PO SCH (07:51)
[2020-02-11] MEDS: Aspirin 81 MG TAB.CHEW PO SCH (07:51)
[2020-02-11] MEDS: Nitroglycerin 0.2 MG PATCH.TD24 TD SCH (07:51)
[2020-02-11] MEDS: amLODIPine 5 MG TABLET PO SCH (07:51)
[2020-02-11] MEDS: Furosemide 20 MG TABLET PO SCH (08:02)
[2020-02-11] MEDS: Insulin LISPRO 300 UNITS/3 ML VIAL SQ SCH (08:03)
[2020-02-11] MEDS ORDERED: Isosorbide MONOnitrate (24 HR) 30 MG TAB.ER.24H PO SCH (09:00)
[2020-02-11] MEDS ORDERED: Tiotropium 18 MCG inhalation IH SCH (10:00)
== END 2020-02-11 10:55 | disposition home or self-care (01) | DRG 174 ==
LOC: 3BNU
PROVIDERS: ADMIT Internal Medicine; ATTEND Internal Medicine

== ENCOUNTER 2020-02-24 14:35 | Observation (INO) ==
[2020-02-24] MEDS ORDERED: 0.9 % Sodium Chloride 1,000 ML IVC ONE (15:04)
[2020-02-24 15:19] LABS: VBG HCO3 29 mEq/L (21-27); VBG PCO2 48 mmHg (41-51); VBG PH 7.39 pH Units (7.32-7.42); VBG PO2 60 mmHg (25-50)
[2020-02-24 15:22] LABS: Basophils % 0.4 %; Eosinophils # 0.2 K/mcL (0.0-0.6); Eosinophils % 2.1 %; Hematocrit 45.5 % (37.5-50.1); Hemoglobin 15.7 g/dL (12.9-16.9); Immature Granulocytes % 0.6 % (0-4); Lymphocytes % 27.7 %; Mean Corpuscular HGB Conc 34.5 g/dL (31.6-35.5); Mean Corpuscular Hemoglobin 31.4 pg (28.0-33.3); Mean Platelet Volume 9.1 fL (9.4-12.4); Monocytes # 1.1 K/mcL (0.0-1.3); Monocytes % 9.7 %; Neutrophils # 6.5 K/mcL (1.6-8.9); Platelet Count 341 K/mcL (140-400); Red Cell Distribution Width 11.9 % (11.5-14.5); Segmented Neutrophils % 59.5 %; White Blood Count 10.8 K/mcL (4.3-11.1)
[2020-02-24 15:31] LABS: INR 1.1; Prothrombin Time 12.9 Seconds (9.4-12.1)
[2020-02-24] MEDS ORDERED: Prochlorperazine 10 MG/2 ML VIAL IVP STA (15:44)
[2020-02-24 15:45] LABS: Troponin I < 0.03 ng/mL (< 0.04)
[2020-02-24 15:52] LABS: Bilirubin,Urine Negative (Negative); Blood,Urine Negative (Negative); Clarity,Urine Clear (Clear); Color,Urine Light-Yellow (Yellow); Glucose,Urine (UA) Normal (Normal); Hyaline Casts,Urine Few per lpf (None Seen); Ketones,Urine Negative (Negative); Leukocyte Esterase,Urine Moderate (Negative); Mucus,Urine Few per lpf (None-Few); Nitrite,Urine Negative (Negative); PH,Urine 6.5 pH Units (5.0-8.0); Protein,Urine 100 mg/dL (Neg-Trace); RBC,Urine 0-3 per hpf (0-3); Specific Gravity,Urine 1.016 (1.010-1.025); Squamous Epithelial Cell,Urine Few per hpf (None-Few); Urobilinogen,Urine Normal (Normal)
[2020-02-24 15:54] LABS: Alanine Aminotransferase 21 Units/L (7-52); Albumin 4.4 g/dL (3.5-5.7); Albumin/Globulin Ratio 1.3 (1.1-2.2); Alkaline Phosphatase 78 Units/L (34-104); Aspartate Amino Transferase 15 Units/L (13-39); BUN/Creatinine Ratio 12 (6-26); Bilirubin,Indirect 0.4 mg/dL (0.0-1.0); Bilirubin,Total 0.4 mg/dL (0.3-1.0); Blood Urea Nitrogen 13 mg/dL (8-23); Calcium 9.7 mg/dL (8.6-10.3); Carbon Dioxide 27 mEq/L (23-29); Chloride 98 mEq/L (98-107); Globulin 3.3 g/dL (2.4-3.5); Glucose 98 mg/dL (70-105); Lipase 6 Units/L (11-82); Osmolality,Calculated 284 (280-300); Phosphorous 3.5 mg/dL (2.7-4.5); Potassium 3.5 mEq/L (3.5-5.1); Sodium 137 mEq/L (136-145); Total Protein 7.7 g/dL (6.4-8.9); eGFR For African Americans > 60 (> 60); eGFR For Non-African Americans > 60 (> 60)
[2020-02-24] MEDS ORDERED: Metoclopramide 10 MG/2 ML VIAL IVP ONE (16:46)
[2020-02-24] MEDS ORDERED: Morphine Sulfate 2 MG/ML SYRINGE IVP ONE (16:47)
[2020-02-24] MEDS ORDERED: Acetaminophen 325 MG TABLET PO PRN (17:19)
[2020-02-24] MEDS ORDERED: Ketorolac 15 MG/ML VIAL IVP PRN (17:19)
[2020-02-24] MEDS ORDERED: Haloperidol Lactate 5 MG/ML VIAL IVP PRN (17:21)
[2020-02-24] MEDS ORDERED: Metoclopramide 10 MG/2 ML VIAL IVP PRN (17:22)
[2020-02-24] MEDS ORDERED: *HR* Dextrose 50 % in Water (Vial) 50 ML VIAL IVP PRN (17:33)
[2020-02-24] MEDS ORDERED: D5% in Water 1,000 ML IVC PRN (17:33)
[2020-02-24] MEDS ORDERED: Dextrose Gel 15 GM/37.5 ML TUBE PO PRN ×2 (17:33)
[2020-02-24] MEDS ORDERED: Insulin LISPRO 300 UNITS/3 ML VIAL SQ SCH (21:00)
[2020-02-24] MEDS ORDERED: traZODone 50 MG TABLET PO SCH (21:00)
[2020-02-24] MEDS: Ranolazine 500 MG TAB.ER.12H PO SCH (22:59)
[2020-02-24] MEDS: Metoprolol XL (24 HR) Succ 50 MG TAB.ER.24H PO SCH (22:59)
[2020-02-24] MEDS: Ringers Solution, Lactated 1,000 ML IVC SCH (23:00)
[2020-02-24] MEDS: Prochlorperazine 10 MG/2 ML VIAL IVP PRN (23:08)
[2020-02-25] MEDS: Prochlorperazine 10 MG/2 ML VIAL IVP PRN (05:25)
[2020-02-25 06:16] LABS: Mean Corpuscular HGB Conc 33.8 g/dL (31.6-35.5); Mean Corpuscular Hemoglobin 30.8 pg (28.0-33.3); Mean Corpuscular Volume 90.9 fL (83.0-100.0); Mean Platelet Volume 9.1 fL (9.4-12.4); Platelet Count 277 K/mcL (140-400); Red Blood Count 4.29 M/mcL (4.19-5.50); Red Cell Distribution Width 11.9 % (11.5-14.5); White Blood Count 9.3 K/mcL (4.3-11.1)
[2020-02-25 06:24] LABS: Hemoglobin 13.2 g/dL (12.9-16.9)
[2020-02-25 06:57] LABS: BUN/Creatinine Ratio 11 (6-26); Blood Urea Nitrogen 11 mg/dL (8-23); Calcium 8.5 mg/dL (8.6-10.3); Carbon Dioxide 29 mEq/L (23-29); Chloride 102 mEq/L (98-107); Glucose 100 mg/dL (70-105); Magnesium 1.5 mg/dL (1.6-2.6); Osmolality,Calculated 283 (280-300); Potassium 3.4 mEq/L (3.5-5.1); Sodium 137 mEq/L (136-145); eGFR For African Americans > 60 (> 60); eGFR For Non-African Americans > 60 (> 60)
[2020-02-25] MEDS: Insulin LISPRO 300 UNITS/3 ML VIAL SQ SCH ×2 (07:57→12:08)
[2020-02-25] MEDS: Metoprolol XL (24 HR) Succ 50 MG TAB.ER.24H PO SCH (08:53)
[2020-02-25] MEDS: Ranolazine 500 MG TAB.ER.12H PO SCH (08:53)
[2020-02-25] MEDS: Ringers Solution, Lactated 1,000 ML IVC SCH (08:59)
[2020-02-25] MEDS ORDERED: amLODIPine 5 MG TABLET PO SCH (09:00)
[2020-02-25] MEDS ORDERED: Furosemide 20 MG TABLET PO SCH (09:00)
[2020-02-25] MEDS ORDERED: Isosorbide MONOnitrate (24 HR) 30 MG TAB.ER.24H PO SCH (09:00)
[2020-02-25] MEDS ORDERED: Tiotropium 18 MCG inhalation IH SCH (10:00)
[2020-02-25 11:20] VITALS: BP 122/68
== END 2020-02-25 13:40 | disposition home or self-care (01) ==
LOC: EMEROOARM 14:35 → 3BNU 14:35
PROVIDERS: ADMIT Internal Medicine; ATTEND Internal Medicine

== ENCOUNTER 2020-04-02 15:16 | Observation (INO) ==
[2020-04-02] MEDS ORDERED: Naloxone 0.4 MG/ML INJ IVP PRN (18:15)
[2020-04-02] MEDS: Nitroglycerin 0.4 MG TAB.SUBL SL PRN ×2 (18:40→18:45)
[2020-04-02 19:31] LABS: Chol/HDL Ratio 8.9 (0-4.9); Magnesium 1.6 mg/dL (1.6-2.6); Phosphorous 2.9 mg/dL (2.7-4.5)
[2020-04-02] MEDS ORDERED: *HR* Dextrose 50 % in Water (Vial) 50 ML VIAL IVP PRN (20:01)
[2020-04-02] MEDS ORDERED: D5% in Water 1,000 ML IVC PRN (20:01)
[2020-04-02] MEDS ORDERED: Dextrose Gel 15 GM/37.5 ML TUBE PO PRN ×2 (20:01)
[2020-04-02] MEDS ORDERED: Acetaminophen 325 MG TABLET PO PRN (20:03)
[2020-04-02] MEDS ORDERED: Ondansetron 4 MG/2 ML VIAL IVP PRN (20:03)
[2020-04-02] MEDS ORDERED: *HR* Heparin 5,000 UNIT/ML VIAL IVP ONE (20:13)
[2020-04-02] MEDS ORDERED: *HR* Heparin 5,000 UNIT/ML VIAL IVP PRN ×2 (20:13)
[2020-04-02] MEDS ORDERED: Heparin 25,000UNIT/250ML 1/2NS 25,000 UNIT/250 ML IV.SOLN IVC SCH (20:15)
[2020-04-02] MEDS ORDERED: Famotidine 20 MG/2 ML VIAL IVP ONE (21:28)
[2020-04-02] MEDS: Insulin LISPRO 300 UNITS/3 ML VIAL SUBQ SCH (23:11)
[2020-04-03 01:00] LABS: INR 1.1; Prothrombin Time 12.8 Seconds (9.4-12.1)
[2020-04-03 01:19] LABS: BUN/Creatinine Ratio 11 (6-26); Blood Urea Nitrogen 10 mg/dL (8-23); Calcium 8.3 mg/dL (8.6-10.3); Carbon Dioxide 25 mEq/L (23-29); Chloride 101 mEq/L (98-107); Glucose 221 mg/dL (70-105); Osmolality,Calculated 286 (280-300); Potassium 3.5 mEq/L (3.5-5.1); Sodium 135 mEq/L (136-145); Troponin I < 0.03 ng/mL (< 0.04); eGFR For African Americans > 60 (> 60); eGFR For Non-African Americans > 60 (> 60)
[2020-04-03] MEDS: Insulin LISPRO 300 UNITS/3 ML VIAL SUBQ SCH ×6 (06:17→20:43)
[2020-04-03] MEDS ORDERED: Ipratropium/Albuterol Neb 3 ML IH PRN (09:02)
[2020-04-03] MEDS: Aspirin Enteric Coated 81 MG Tablet PO SCH (09:24)
[2020-04-03 10:56] LABS: Estimated Average Glucose 154 mg/dl
[2020-04-03] MEDS: Budesonide/Formoterol 160/4.5 1 PUFF INH IH SCH ×2 (12:02→21:45)
[2020-04-03] MEDS: Metoprolol XL (24 HR) Succ 50 MG TAB.ER.24H PO SCH (12:21)
[2020-04-03] MEDS ORDERED: 0.9 % Sodium Chloride 2,000 ML ONE (14:30)
[2020-04-03] MEDS ORDERED: Heparin 1,000 UNITS/500 mL 500 ML ONE (14:30)
[2020-04-03] MEDS ORDERED: *HR* Heparin 10,000 UNIT/10 ML VIAL ONE (14:31)
[2020-04-03] MEDS ORDERED: Nitroglycerin 1,000 MCG/10 ML VIAL IV ONE (14:31)
[2020-04-03] MEDS ORDERED: ISOVUE-370 200 ML INFUS..BTL ONE (14:31)
[2020-04-03] MEDS ORDERED: *HR* Midazolam HCl 2 MG/2 ML VIAL ONE (14:57)
[2020-04-03] MEDS ORDERED: *HR* FentaNYL (PF) 100 MCG/2 ML VIAL ONE (14:57)
[2020-04-03] MEDS ORDERED: Tirofiban 12.5 MG/250ML 12.5 MG/250 ML BAG ONE (15:35)
[2020-04-03] MEDS ORDERED: *HR* Labetalol 100 MG/20 ML MDV ONE (15:43)
[2020-04-03] MEDS ORDERED: Tirofiban 12.5 MG/250ML 12.5 MG/250 ML BAG IVC SCH (16:00)
[2020-04-03] MEDS ORDERED: Insulin NPH/REG 70/30 100 UNIT/ML (x5UNIT) SUBQ SCH (16:30)
[2020-04-03] MEDS: Insulin NPH/REG 70/30 100 UNIT/ML (x5UNIT) SUBQ SCH (17:40)
[2020-04-04 04:34] LABS: Basophils % 0.2 %; Eosinophils # 0.2 K/mcL (0.0-0.6); Eosinophils % 2.1 %; Immature Granulocytes % 0.5 % (0-4); Lymphocytes # 2.2 K/mcL (0.6-4.6); Lymphocytes % 24.4 %; Mean Corpuscular HGB Conc 34.2 g/dL (31.6-35.5); Mean Corpuscular Hemoglobin 31.6 pg (28.0-33.3); Mean Corpuscular Volume 92.2 fL (83.0-100.0); Mean Platelet Volume 9.6 fL (9.4-12.4); Monocytes # 0.9 K/mcL (0.0-1.3); Monocytes % 9.5 %; Neutrophils # 5.8 K/mcL (1.6-8.9); Platelet Count 222 K/mcL (140-400); Red Blood Count 4.12 M/mcL (4.19-5.50); Red Cell Distribution Width 12.3 % (11.5-14.5); Segmented Neutrophils % 63.3 %; White Blood Count 9.2 K/mcL (4.3-11.1)
[2020-04-04 04:53] LABS: BUN/Creatinine Ratio 10 (6-26); Blood Urea Nitrogen 9 mg/dL (8-23); Calcium 8.6 mg/dL (8.6-10.3); Carbon Dioxide 28 mEq/L (23-29); Chloride 100 mEq/L (98-107); Glucose 201 mg/dL (70-105); Magnesium 1.6 mg/dL (1.6-2.6); Osmolality,Calculated 284 (280-300); Phosphorous 3.1 mg/dL (2.7-4.5); Potassium 4.1 mEq/L (3.5-5.1); Sodium 135 mEq/L (136-145); eGFR For African Americans > 60 (> 60); eGFR For Non-African Americans > 60 (> 60)
[2020-04-04] MEDS: Insulin LISPRO 300 UNITS/3 ML VIAL SUBQ SCH ×2 (05:40→08:28)
[2020-04-04] MEDS: Aspirin Enteric Coated 81 MG Tablet PO SCH (08:27)
[2020-04-04] MEDS: Insulin NPH/REG 70/30 100 UNIT/ML (x5UNIT) SUBQ SCH (08:32)
[2020-04-04] MEDS ORDERED: amLODIPine 5 MG TABLET PO SCH (09:00)
[2020-04-04] MEDS ORDERED: Isosorbide MONOnitrate (24 HR) 60 MG TAB.ER.24H PO SCH (09:00)
[2020-04-04] MEDS ORDERED: Insulin DETEMIR 100 UNIT/ML X5UNITS SUBQ SCH ×2 (09:00)
[2020-04-04] MEDS ORDERED: Ranolazine 500 MG TAB.ER.12H PO SCH (09:00)
[2020-04-04] MEDS ORDERED: Tiotropium 10 INH DOSE IH SCH (10:00)
[2020-04-04] MEDS: Budesonide/Formoterol 160/4.5 1 PUFF INH IH SCH (10:11)
[2020-04-04] MEDS: Metoprolol XL (24 HR) Succ 50 MG TAB.ER.24H PO SCH (11:03)
[2020-04-04 11:21] VITALS: BP 122/65
[2020-04-05] MEDS ORDERED: *HR* Ticagrelor 90 MG TABLET PO ONE (09:00)
[2020-04-05] MEDS ORDERED: *HR* Ticagrelor 90 MG TABLET PO SCH (21:00)
[2020-04-06] MEDS ORDERED: *HR* Ticagrelor 90 MG TABLET PO SCH (09:00)
== END 2020-04-04 13:09 | disposition home health service (06) ==
LOC: 3BNU → SUATTDRO 16:53
PROVIDERS: ADMIT Student in an Organized Health Care Education/Training Program; ATTEND Internal Medicine

== ENCOUNTER 2020-12-27 17:07 | Inpatient (IN) ==
[2020-12-27] MEDS ORDERED: Acetaminophen 325 MG TABLET PO PRN (20:16)
[2020-12-27] MEDS ORDERED: Melatonin 3 MG TABLET PO PRN (20:16)
[2020-12-27] MEDS ORDERED: Ondansetron 4 MG/2 ML VIAL IVP PRN (20:16)
[2020-12-27] MEDS ORDERED: Naloxone 0.4 MG/ML INJ IVP PRN (20:16)
[2020-12-27] MEDS ORDERED: D5% in Water 1,000 ML IVC PRN (20:17)
[2020-12-27] MEDS ORDERED: *HR* Dextrose 50 % in Water (Vial) 50 ML VIAL IVP PRN (20:17)
[2020-12-27] MEDS ORDERED: Dextrose Gel 15 GM/37.5 ML TUBE PO PRN ×2 (20:17)
[2020-12-27] MEDS ORDERED: *HR* Heparin 5,000 UNIT/ML VIAL IVP PRN ×2 (20:21)
[2020-12-27] MEDS ORDERED: Heparin 25,000UNIT/250ML 1/2NS 25,000 UNIT/250 ML IV.SOLN IVC SCH (20:30)
[2020-12-27] MEDS: Morphine Sulfate 2 MG/ML SYRINGE IVP PRN (21:16)
[2020-12-27 21:48] LABS: Heparin anti-factor XA UFH 0.38 IU/mL (0.30-0.70)
[2020-12-27 21:49] LABS: Prothrombin Time 11.6 Seconds (9.4-12.1)
[2020-12-27] MEDS: Insulin LISPRO 300 UNITS/3 ML VIAL SUBQ SCH (23:56)
[2020-12-28] MEDS: Morphine Sulfate 2 MG/ML SYRINGE IVP PRN ×4 (02:44→21:55)
[2020-12-28 04:23] LABS: Basophils # 0.1 K/mcL (0.0-0.2); Basophils % 0.7 %; Eosinophils # 0.3 K/mcL (0.0-0.6); Eosinophils % 3.6 %; Hematocrit 36.4 % (37.5-50.1); Immature Granulocytes % 1.1 % (0-4); Lymphocytes # 3.1 K/mcL (0.6-4.6); Lymphocytes % 38.6 %; Mean Corpuscular HGB Conc 35.7 g/dL (31.6-35.5); Mean Corpuscular Hemoglobin 32.1 pg (28.0-33.3); Mean Corpuscular Volume 89.9 fL (83.0-100.0); Mean Platelet Volume 9.9 fL (9.4-12.4); Monocytes # 0.8 K/mcL (0.0-1.3); Monocytes % 9.4 %; Neutrophils # 3.8 K/mcL (1.6-8.9); Platelet Count 232 K/mcL (140-400); Red Blood Count 4.05 M/mcL (4.19-5.50); Red Cell Distribution Width 11.9 % (11.5-14.5); Segmented Neutrophils % 46.6 %; White Blood Count 8.1 K/mcL (4.3-11.1)
[2020-12-28 04:45] LABS: Alanine Aminotransferase 7 Units/L (7-52); Albumin 2.9 g/dL (3.5-5.7); Albumin/Globulin Ratio 1.1 (1.1-2.2); Alkaline Phosphatase 71 Units/L (34-104); Aspartate Amino Transferase 11 Units/L (13-39); BUN/Creatinine Ratio 14 (6-26); Bilirubin,Total 0.3 mg/dL (0.3-1.0); Blood Urea Nitrogen 13 mg/dL (8-23); Calcium 7.9 mg/dL (8.6-10.3); Carbon Dioxide 24 mEq/L (23-29); Chloride 103 mEq/L (98-107); Globulin 2.6 g/dL (2.4-3.5); Glucose 215 mg/dL (70-105); Magnesium 1.5 mg/dL (1.6-2.6); Osmolality,Calculated 289 (280-300); Phosphorous 2.8 mg/dL (2.7-4.5); Potassium 3.3 mEq/L (3.5-5.1); Sodium 136 mEq/L (136-145); Total Protein 5.5 g/dL (6.4-8.9); Troponin I 0.03 ng/mL (< 0.04); eGFR For African Americans > 60 (> 60); eGFR For Non-African Americans > 60 (> 60)
[2020-12-28] MEDS: Insulin LISPRO 300 UNITS/3 ML VIAL SUBQ SCH ×3 (05:58→18:15)
[2020-12-28] MEDS: Ranolazine 500 MG TAB.ER.12H PO SCH ×2 (08:55→21:48)
[2020-12-28] MEDS: Aspirin Enteric Coated 81 MG Tablet PO SCH (08:55)
[2020-12-28] MEDS ORDERED: Perflutren Lipid Microsphere 1.3 ML in 0.9 % Sodium Chloride 8.7 ML IVP PRN (10:17)
[2020-12-28] MEDS: Tiotropium 10 INH DOSE IH SCH (10:23)
[2020-12-28] MEDS ORDERED: Isovue-370 500 ML BOTTLE IVP ONE (10:43)
[2020-12-28] MEDS ORDERED: 0.9 % Sodium Chloride 2,000 ML ONE (14:44)
[2020-12-28] MEDS ORDERED: Nitroglycerin 1,000 MCG/5 ML VIAL IV ONE (14:45)
[2020-12-28] MEDS ORDERED: Heparin 1,000 UNITS/500 mL 500 ML ONE (14:45)
[2020-12-28] MEDS ORDERED: ISOVUE-370 200 ML INFUS..BTL ONE (14:45)
[2020-12-28] MEDS ORDERED: *HR* Heparin 10,000 UNIT/10 ML VIAL ONE (14:45)
[2020-12-28] MEDS ORDERED: *HR* FentaNYL (PF) 100 MCG/2 ML VIAL ONE (15:00)
[2020-12-28] MEDS ORDERED: *HR* Midazolam HCl 2 MG/2 ML VIAL ONE (15:00)
[2020-12-28] MEDS: 0.9 % Sodium Chloride 1,000 ML IVC SCH (18:26)
[2020-12-29] MEDS: Insulin LISPRO 300 UNITS/3 ML VIAL SUBQ SCH ×5 (00:40→21:54)
[2020-12-29] MEDS: 0.9 % Sodium Chloride 1,000 ML IVC SCH ×3 (00:43→22:04)
[2020-12-29] MEDS: Morphine Sulfate 2 MG/ML SYRINGE IVP PRN ×5 (03:27→23:04)
[2020-12-29 04:12] LABS: BUN/Creatinine Ratio 10 (6-26); Blood Urea Nitrogen 8 mg/dL (8-23); Calcium 8.6 mg/dL (8.6-10.3); Carbon Dioxide 24 mEq/L (23-29); Chloride 103 mEq/L (98-107); Glucose 176 mg/dL (70-105); Magnesium 1.8 mg/dL (1.6-2.6); Osmolality,Calculated 281 (280-300); Sodium 134 mEq/L (136-145); eGFR For African Americans > 60 (> 60); eGFR For Non-African Americans > 60 (> 60)
[2020-12-29 06:26] LABS: Basophils # 0.1 K/mcL (0.0-0.2); Basophils % 0.6 %; Eosinophils # 0.3 K/mcL (0.0-0.6); Eosinophils % 3.4 %; Hematocrit 41.1 % (37.5-50.1); Hemoglobin 14.4 g/dL (12.9-16.9); Lymphocytes # 1.9 K/mcL (0.6-4.6); Lymphocytes % 22.2 %; Mean Corpuscular Volume 91.3 fL (83.0-100.0); Mean Platelet Volume 9.8 fL (9.4-12.4); Monocytes # 0.7 K/mcL (0.0-1.3); Monocytes % 8.5 %; Neutrophils # 5.4 K/mcL (1.6-8.9); Platelet Count 240 K/mcL (140-400); Segmented Neutrophils % 64.3 %; White Blood Count 8.3 K/mcL (4.3-11.1)
[2020-12-29] MEDS: Tiotropium 10 INH DOSE IH SCH (07:25)
[2020-12-29] MEDS: Aspirin Enteric Coated 81 MG Tablet PO SCH (08:36)
[2020-12-29] MEDS: Ranolazine 500 MG TAB.ER.12H PO SCH ×2 (08:37→21:55)
[2020-12-29] MEDS: Metoprolol XL (24 HR) Succ 50 MG TAB.ER.24H PO SCH ×2 (08:37→21:55)
[2020-12-29] MEDS ORDERED: Isosorbide MONOnitrate (24 HR) 60 MG TAB.ER.24H PO SCH (09:00)
[2020-12-29] MEDS: lisinopriL 20 MG TABLET PO SCH (12:26)
[2020-12-29] MEDS: Isosorbide MONOnitrate (24 HR) 30 MG TAB.ER.24H PO SCH (12:26)
[2020-12-29] MEDS: amLODIPine 5 MG TABLET PO SCH (12:26)
[2020-12-29] MEDS: Insulin DETEMIR 100 UNIT/ML X5UNITS SUBQ SCH (12:27)
[2020-12-29] MEDS: Pantoprazole 40 MG VIAL IVP SCH (14:36)
[2020-12-29] MEDS: *HR* Heparin 5,000 UNIT/ML VIAL SQ SCH ×2 (14:36→21:58)
[2020-12-29] MEDS: Piperacillin/Tazobactam 3.375 GM in 0.9 % Sodium Chloride Mini Bag 100 ML IVPB SCH ×2 (14:38→22:00)
[2020-12-29] MEDS: traZODone 50 MG TABLET PO SCH (21:55)
[2020-12-30 05:43] LABS: Basophils % 0.4 %; Eosinophils # 0.2 K/mcL (0.0-0.6); Eosinophils % 3.3 %; Hematocrit 35.9 % (37.5-50.1); Immature Granulocytes % 0.9 % (0-4); Lymphocytes # 2.3 K/mcL (0.6-4.6); Lymphocytes % 32.9 %; Mean Corpuscular HGB Conc 34.3 g/dL (31.6-35.5); Mean Corpuscular Hemoglobin 31.3 pg (28.0-33.3); Mean Corpuscular Volume 91.3 fL (83.0-100.0); Mean Platelet Volume 9.7 fL (9.4-12.4); Monocytes # 0.6 K/mcL (0.0-1.3); Monocytes % 8.9 %; Neutrophils # 3.7 K/mcL (1.6-8.9); Platelet Count 223 K/mcL (140-400); Red Blood Count 3.93 M/mcL (4.19-5.50); Segmented Neutrophils % 53.6 %
[2020-12-30 05:45] LABS: Hemoglobin 12.3 g/dL (12.9-16.9)
[2020-12-30] MEDS: *HR* Heparin 5,000 UNIT/ML VIAL SQ SCH ×2 (06:01→13:32)
[2020-12-30] MEDS: Piperacillin/Tazobactam 3.375 GM in 0.9 % Sodium Chloride Mini Bag 100 ML IVPB SCH ×3 (06:01→20:24)
[2020-12-30 06:07] LABS: BUN/Creatinine Ratio 10 (6-26); Blood Urea Nitrogen 11 mg/dL (8-23); Carbon Dioxide 23 mEq/L (23-29); Chloride 106 mEq/L (98-107); Glucose 192 mg/dL (70-105); Magnesium 1.6 mg/dL (1.6-2.6); Osmolality,Calculated 285 (280-300); Potassium 3.9 mEq/L (3.5-5.1); Sodium 135 mEq/L (136-145); eGFR For African Americans > 60 (> 60); eGFR For Non-African Americans > 60 (> 60)
[2020-12-30] MEDS: lisinopriL 20 MG TABLET PO SCH (07:58)
[2020-12-30] MEDS: Aspirin Enteric Coated 81 MG Tablet PO SCH (07:58)
[2020-12-30] MEDS: Metoprolol XL (24 HR) Succ 50 MG TAB.ER.24H PO SCH ×2 (07:58→20:24)
[2020-12-30] MEDS: Isosorbide MONOnitrate (24 HR) 30 MG TAB.ER.24H PO SCH (07:58)
[2020-12-30] MEDS: amLODIPine 5 MG TABLET PO SCH (07:58)
[2020-12-30] MEDS: Pantoprazole 40 MG VIAL IVP SCH (07:59)
[2020-12-30] MEDS: 0.9 % Sodium Chloride 1,000 ML IVC SCH ×2 (07:59→20:46)
[2020-12-30] MEDS: Ranolazine 500 MG TAB.ER.12H PO SCH ×2 (07:59→20:24)
[2020-12-30] MEDS: Morphine Sulfate 2 MG/ML SYRINGE IVP PRN ×4 (08:00→20:25)
[2020-12-30] MEDS: Insulin LISPRO 300 UNITS/3 ML VIAL SUBQ SCH ×4 (08:00→20:28)
[2020-12-30] MEDS: Insulin DETEMIR 100 UNIT/ML X5UNITS SUBQ SCH ×2 (09:08→20:25)
[2020-12-30] MEDS: Tiotropium 10 INH DOSE IH SCH (09:34)
[2020-12-30] MEDS ORDERED: Isovue-370 500 ML BOTTLE IVP ONE (10:28)
[2020-12-30 13:30] LABS: Hematocrit 34.8 % (37.5-50.1); Hemoglobin 12.1 g/dL (12.9-16.9)
[2020-12-30] MEDS: traZODone 50 MG TABLET PO SCH (20:24)
[2020-12-31] MEDS: *HR* Heparin 5,000 UNIT/ML VIAL SQ SCH ×4 (01:04→20:03)
[2020-12-31] MEDS: Piperacillin/Tazobactam 3.375 GM in 0.9 % Sodium Chloride Mini Bag 100 ML IVPB SCH ×3 (04:49→20:02)
[2020-12-31] MEDS: Morphine Sulfate 2 MG/ML SYRINGE IVP PRN ×5 (04:50→20:06)
[2020-12-31] MEDS: 0.9 % Sodium Chloride 1,000 ML IVC SCH ×2 (05:12→18:15)
[2020-12-31 05:35] LABS: Basophils % 0.4 %; Eosinophils # 0.2 K/mcL (0.0-0.6); Eosinophils % 3.3 %; Hematocrit 39.9 % (37.5-50.1); Hemoglobin 13.4 g/dL (12.9-16.9); Immature Granulocytes % 0.6 % (0-4); Lymphocytes # 2.3 K/mcL (0.6-4.6); Lymphocytes % 32.6 %; Mean Corpuscular HGB Conc 33.6 g/dL (31.6-35.5); Mean Corpuscular Volume 92.4 fL (83.0-100.0); Mean Platelet Volume 9.9 fL (9.4-12.4); Monocytes # 0.6 K/mcL (0.0-1.3); Neutrophils # 3.8 K/mcL (1.6-8.9); Platelet Count 231 K/mcL (140-400); Red Blood Count 4.32 M/mcL (4.19-5.50); Segmented Neutrophils % 54.1 %
[2020-12-31 05:55] LABS: BUN/Creatinine Ratio 7 (6-26); Blood Urea Nitrogen 8 mg/dL (8-23); Calcium 8.5 mg/dL (8.6-10.3); Carbon Dioxide 24 mEq/L (23-29); Chloride 107 mEq/L (98-107); Glucose 205 mg/dL (70-105); Osmolality,Calculated 288 (280-300); Potassium 3.9 mEq/L (3.5-5.1); Sodium 137 mEq/L (136-145); eGFR For African Americans > 60 (> 60); eGFR For Non-African Americans > 60 (> 60)
[2020-12-31] MEDS: Pantoprazole 40 MG VIAL IVP SCH (09:20)
[2020-12-31] MEDS: Isosorbide MONOnitrate (24 HR) 30 MG TAB.ER.24H PO SCH (09:20)
[2020-12-31] MEDS: Ranolazine 500 MG TAB.ER.12H PO SCH ×2 (09:20→20:02)
[2020-12-31] MEDS: Aspirin Enteric Coated 81 MG Tablet PO SCH (09:20)
[2020-12-31] MEDS: Metoprolol XL (24 HR) Succ 50 MG TAB.ER.24H PO SCH ×2 (09:21→20:03)
[2020-12-31] MEDS: lisinopriL 20 MG TABLET PO SCH (09:21)
[2020-12-31] MEDS: amLODIPine 5 MG TABLET PO SCH (09:21)
[2020-12-31] MEDS: Insulin LISPRO 300 UNITS/3 ML VIAL SUBQ SCH ×4 (09:28→22:16)
[2020-12-31 09:57] LABS: Bilirubin,Urine Negative (Negative); Blood,Urine Negative (Negative); Clarity,Urine Clear (Clear); Color,Urine Colorless (Yellow); Glucose,Urine (UA) 500 mg/dL (Normal); Ketones,Urine Negative (Negative); Leukocyte Esterase,Urine Negative (Negative); Nitrite,Urine Negative (Negative); Protein,Urine Negative (Neg-Trace); RBC,Urine 0-3 per hpf (0-3); Urobilinogen,Urine Normal (Normal); WBC,Urine 0-3 per hpf (0-3)
[2020-12-31] MEDS: Tiotropium 10 INH DOSE IH SCH (10:12)
[2020-12-31] MEDS ORDERED: Isosorbide MONOnitrate (24 HR) 30 MG TAB.ER.24H PO ONE (13:20)
[2020-12-31] MEDS: traZODone 50 MG TABLET PO SCH (20:02)
[2020-12-31] MEDS: Insulin DETEMIR 100 UNIT/ML X5UNITS SUBQ SCH (20:03)
[2021-01-01] MEDS: Morphine Sulfate 2 MG/ML SYRINGE IVP PRN ×3 (00:21→12:25)
[2021-01-01] MEDS: *HR* Heparin 5,000 UNIT/ML VIAL SQ SCH ×3 (04:46→21:29)
[2021-01-01] MEDS: Piperacillin/Tazobactam 3.375 GM in 0.9 % Sodium Chloride Mini Bag 100 ML IVPB SCH ×3 (04:47→20:32)
[2021-01-01] MEDS: 0.9 % Sodium Chloride 1,000 ML IVC SCH (04:47)
[2021-01-01] MEDS: Tiotropium 10 INH DOSE IH SCH (08:08)
[2021-01-01] MEDS: Isosorbide MONOnitrate (24 HR) 30 MG TAB.ER.24H PO SCH (08:45)
[2021-01-01] MEDS: Pantoprazole 40 MG VIAL IVP SCH (08:45)
[2021-01-01] MEDS: Ranolazine 500 MG TAB.ER.12H PO SCH ×2 (08:46→20:31)
[2021-01-01] MEDS: Aspirin Enteric Coated 81 MG Tablet PO SCH (08:46)
[2021-01-01] MEDS: Insulin LISPRO 300 UNITS/3 ML VIAL SUBQ SCH ×4 (08:46→20:35)
[2021-01-01] MEDS: lisinopriL 20 MG TABLET PO SCH (08:46)
[2021-01-01] MEDS: amLODIPine 5 MG TABLET PO SCH (08:46)
[2021-01-01] MEDS: Metoprolol XL (24 HR) Succ 50 MG TAB.ER.24H PO SCH ×2 (09:08→21:06)
[2021-01-01 13:15] LABS: Adenovirus Not Detected (Not Detect); Bordetella Pertussis Not Detected (Not Detect); Chlamydophila pneumoniae Not Detected (Not Detect); Coronavirus 229E Not Detected (Not Detect); Coronavirus HKU1 Not Detected (Not Detect); Coronavirus NL63 Not Detected (Not Detect); Coronavirus OC43 Not Detected (Not Detect); Human Metapneumovirus Not Detected (Not Detect); Human Rhinovirus/Enterovirus Not Detected (Not Detect); Influenza A Subtype 2009 H1 Not Detected (Not Detect); Influenza B Not Detected (Not Detect); Mycoplasma pneumoniae Not Detected (Not Detect); Parainfluenza Virus 1 Not Detected (Not Detect); Parainfluenza Virus 2 Not Detected (Not Detect); Parainfluenza Virus 3 Not Detected (Not Detect); Parainfluenza Virus 4 Not Detected (Not Detect); Respiratory Syncytial Virus Not Detected (Not Detect); SARS-CoV-2 Not Detected (Not Detect)
[2021-01-01] MEDS: Ipratropium/Albuterol Neb 3 ML IH SCH ×4 (15:18→23:35)
[2021-01-01] MEDS: traZODone 50 MG TABLET PO SCH (20:31)
[2021-01-01] MEDS: Insulin DETEMIR 100 UNIT/ML X5UNITS SUBQ SCH (20:31)
[2021-01-02] MEDS: Ipratropium/Albuterol Neb 3 ML IH SCH (03:57)
[2021-01-02] MEDS: Piperacillin/Tazobactam 3.375 GM in 0.9 % Sodium Chloride Mini Bag 100 ML IVPB SCH (05:27)
[2021-01-02] MEDS: *HR* Heparin 5,000 UNIT/ML VIAL SQ SCH (05:27)
[2021-01-02] MEDS ORDERED: Ipratropium/Albuterol Neb 3 ML IH PRN (06:22)
[2021-01-02 06:40] VITALS: BP 127/65; PULSE 57; TEMP 98.1; O2SAT 90
[2021-01-02] MEDS: Ranolazine 500 MG TAB.ER.12H PO SCH (07:33)
[2021-01-02] MEDS: lisinopriL 20 MG TABLET PO SCH (07:34)
[2021-01-02] MEDS: Metoprolol XL (24 HR) Succ 50 MG TAB.ER.24H PO SCH (07:34)
[2021-01-02] MEDS: amLODIPine 5 MG TABLET PO SCH (07:34)
[2021-01-02] MEDS: Aspirin Enteric Coated 81 MG Tablet PO SCH (07:34)
[2021-01-02] MEDS: Insulin LISPRO 300 UNITS/3 ML VIAL SUBQ SCH (07:34)
[2021-01-02] MEDS: Isosorbide MONOnitrate (24 HR) 30 MG TAB.ER.24H PO SCH (07:34)
== END 2021-01-02 13:41 | disposition home or self-care (01) | DRG 191 ==
LOC: 2ANU → SUATTDRO 19:22
PROVIDERS: ADMIT Internal Medicine; ATTEND Internal Medicine

== ENCOUNTER 2021-09-06 14:55 | Observation (INO) ==
[2021-09-06] MEDS ORDERED: Acetaminophen 325 MG TABLET PO PRN (18:07)
[2021-09-06] MEDS ORDERED: Perflutren Lipid Microsphere 1.3 ML in 0.9 % Sodium Chloride 8.7 ML IVP PRN (18:07)
[2021-09-06] MEDS ORDERED: Naloxone 0.4 MG/ML INJ IVP PRN (18:07)
[2021-09-06] MEDS ORDERED: *HR* Heparin 5,000 UNIT/ML VIAL IVP ONE (18:17)
[2021-09-06] MEDS ORDERED: *HR* Heparin 5,000 UNIT/ML VIAL IVP PRN ×2 (18:17)
[2021-09-06] MEDS: Heparin 25,000UNIT/250ML 1/2NS 25,000 UNIT/250 ML IV.SOLN IVC SCH (18:57)
[2021-09-06 19:08] LABS: Heparin anti-factor XA UFH 0.52 IU/mL (0.30-0.70); INR 1.1; Prothrombin Time 11.7 Seconds (9.4-12.1)
[2021-09-06 19:15] LABS: Hemoglobin 16.8 g/dL (12.9-16.9); Mean Corpuscular Hemoglobin 31.6 pg (28.0-33.3); Mean Corpuscular Volume 90.4 fL (83.0-100.0); Mean Platelet Volume 9.5 fL (9.4-12.4); Platelet Count 238 K/mcL (140-400); Red Blood Count 5.31 M/mcL (4.19-5.50); Red Cell Distribution Width 12.2 % (11.5-14.5); White Blood Count 7.8 K/mcL (4.3-11.1)
[2021-09-06] MEDS ORDERED: *HR* Dextrose 50 % in Water (Syg) 50 ML SYRINGE IVP PRN (20:19)
[2021-09-06] MEDS ORDERED: Dextrose Gel 15 GM/37.5 ML TUBE PO PRN ×2 (20:19)
[2021-09-06] MEDS ORDERED: D5% in Water 1,000 ML IVC PRN (20:19)
[2021-09-07] MEDS: Insulin LISPRO 300 UNITS/3 ML VIAL SUBQ SCH ×5 (00:36→21:43)
[2021-09-07 04:05] LABS: Basophils % 0.5 %; Eosinophils # 0.3 K/mcL (0.0-0.6); Eosinophils % 3.3 %; Hematocrit 46.7 % (37.5-50.1); Hemoglobin 15.9 g/dL (12.9-16.9); Immature Granulocytes % 0.6 % (0-4); Lymphocytes # 2.9 K/mcL (0.6-4.6); Lymphocytes % 34.9 %; Mean Corpuscular Hemoglobin 32.1 pg (28.0-33.3); Mean Corpuscular Volume 94.2 fL (83.0-100.0); Mean Platelet Volume 9.6 fL (9.4-12.4); Monocytes # 0.8 K/mcL (0.0-1.3); Monocytes % 9.8 %; Neutrophils # 4.2 K/mcL (1.6-8.9); Platelet Count 238 K/mcL (140-400); Red Blood Count 4.96 M/mcL (4.19-5.50); Red Cell Distribution Width 12.3 % (11.5-14.5); Segmented Neutrophils % 50.9 %; White Blood Count 8.3 K/mcL (4.3-11.1)
[2021-09-07 04:27] LABS: Alanine Aminotransferase 8 Units/L (7-52); Albumin 3.7 g/dL (3.5-5.7); Albumin/Globulin Ratio 1.2 (1.1-2.2); Alkaline Phosphatase 68 Units/L (34-104); Aspartate Amino Transferase 12 Units/L (13-39); BUN/Creatinine Ratio 22 (6-26); Bilirubin,Total 0.4 mg/dL (0.3-1.0); Blood Urea Nitrogen 28 mg/dL (8-23); Calcium 9.3 mg/dL (8.6-10.3); Carbon Dioxide 22 mEq/L (23-29); Chloride 100 mEq/L (98-107); Chol/HDL Ratio 6.1 (0-4.9); Cholesterol 245 mg/dL (< 200); Glucose 207 mg/dL (70-105); HDL Cholesterol 40 mg/dL (40-59); LDL Cholesterol,Calculated 137 mg/dL (< 100); Magnesium 1.8 mg/dL (1.6-2.6); Osmolality,Calculated 294 (280-300); Sodium 136 mEq/L (136-145); Total Protein 6.7 g/dL (6.4-8.9); Triglycerides 342 mg/dL (< 150); eGFR For African Americans > 60 (> 60); eGFR For Non-African Americans 58 (> 60)
[2021-09-07 05:50] LABS: Estimated Average Glucose 249 mg/dl; Hemoglobin A1C 10.3 %
[2021-09-07] MEDS: Aspirin 81 MG TAB.CHEW PO SCH (08:40)
[2021-09-07] MEDS ORDERED: Famotidine 20 MG/2 ML VIAL IVP ONE (10:44)
[2021-09-07 11:02] LABS: Troponin I < 0.03 ng/mL (< 0.04)
[2021-09-07 11:14] LABS: Thyroid Stimulating Hormone 1.943 mcIU/mL (0.340-5.600)
[2021-09-07] MEDS: Ranolazine 500 MG TAB.ER.12H PO SCH ×2 (11:53→21:45)
[2021-09-07] MEDS: Insulin DETEMIR 100 UNIT/ML X5UNITS SUBQ SCH ×2 (11:54→21:44)
[2021-09-07] MEDS ORDERED: *HR* Heparin 10,000 UNIT/10 ML VIAL ONE (14:28)
[2021-09-07] MEDS ORDERED: ISOVUE-370 200 ML INFUS..BTL ONE ×2 (14:28→16:18)
[2021-09-07] MEDS ORDERED: 0.9 % Sodium Chloride 2,000 ML ONE (14:28)
[2021-09-07] MEDS ORDERED: Nitroglycerin 1,000 MCG/5 ML VIAL IV ONE (14:28)
[2021-09-07] MEDS ORDERED: *HR* FentaNYL (PF) 250 MCG/5 ML VIAL ONE (14:28)
[2021-09-07] MEDS ORDERED: *HR* Midazolam HCl 2 MG/2 ML VIAL ONE (14:28)
[2021-09-07] MEDS ORDERED: Heparin 1,000 UNITS/500 mL 500 ML ONE (14:28)
[2021-09-07] MEDS ORDERED: Tirofiban 12.5 MG/250ML 12.5 MG/250 ML BAG ONE (16:00)
[2021-09-07] MEDS ORDERED: Nitroglycerin Spray 4.9 GM BOTTLE ONE (16:12)
[2021-09-07] MEDS ORDERED: Tirofiban 12.5 MG/250ML 12.5 MG/250 ML BAG IVC SCH (16:45)
[2021-09-07] MEDS: Heparin 25,000UNIT/250ML 1/2NS 25,000 UNIT/250 ML IV.SOLN IVC SCH (18:40)
[2021-09-07 20:30] LABS: Amphetamine Screen,Urine Negative ng/mL (Cutoff=1000); Barbiturate Screen,Urine Negative ng/mL (Cutoff=200); Benzodiazepines Screen,Urine Positive ng/mL (Cutoff=200); Cannabinoid Screen,Urine Positive ng/mL (Cutoff = 50); Cocaine Screen,Urine Negative ng/mL (Cutoff= 300); Opiate Screen,Urine Negative ng/mL (Cutoff=300); Phencyclidine Screen,Urine Negative ng/mL (Cutoff=25)
[2021-09-07] MEDS: Budesonide/Formoterol 160/4.5 1 PUFF INH IH SCH (20:31)
[2021-09-07] MEDS ORDERED: RANOLAZINE 1000 MG PO SCH (21:00)
[2021-09-07] MEDS ORDERED: NON-FORMULARY MEDICATION 1 EACH EACH (Esomeprazole Magnesium [Nexium] 20 MG Capsule.Dr) PO SCH (21:00)
[2021-09-07] MEDS: Melatonin 3 MG TABLET PO PRN (21:45)
[2021-09-07] MEDS: traZODone 50 MG TABLET PO SCH (21:48)
[2021-09-07] MEDS ORDERED: Morphine Sulfate 2 MG/ML SYRINGE IVP ONE (22:22)
[2021-09-08 04:43] LABS: Basophils % 0.4 %; Eosinophils # 0.3 K/mcL (0.0-0.6); Eosinophils % 3.7 %; Hematocrit 41.4 % (37.5-50.1); Immature Granulocytes % 0.4 % (0-4); Lymphocytes # 2.2 K/mcL (0.6-4.6); Lymphocytes % 29.8 %; Mean Corpuscular HGB Conc 34.3 g/dL (31.6-35.5); Mean Corpuscular Hemoglobin 31.2 pg (28.0-33.3); Mean Platelet Volume 9.2 fL (9.4-12.4); Monocytes # 0.8 K/mcL (0.0-1.3); Monocytes % 11.4 %; Platelet Count 213 K/mcL (140-400); Red Blood Count 4.55 M/mcL (4.19-5.50); Red Cell Distribution Width 12.1 % (11.5-14.5); Segmented Neutrophils % 54.3 %; White Blood Count 7.4 K/mcL (4.3-11.1)
[2021-09-08 04:46] LABS: Hemoglobin 14.2 g/dL (12.9-16.9)
[2021-09-08 04:56] LABS: BUN/Creatinine Ratio 17 (6-26); Blood Urea Nitrogen 22 mg/dL (8-23); Calcium 8.7 mg/dL (8.6-10.3); Carbon Dioxide 23 mEq/L (23-29); Chloride 103 mEq/L (98-107); Glucose 256 mg/dL (70-105); Osmolality,Calculated 290 (280-300); Potassium 4.1 mEq/L (3.5-5.1); Sodium 134 mEq/L (136-145); eGFR For African Americans > 60 (> 60); eGFR For Non-African Americans 55 (> 60)
[2021-09-08] MEDS: Aspirin 81 MG TAB.CHEW PO SCH (07:40)
[2021-09-08] MEDS: Insulin DETEMIR 100 UNIT/ML X5UNITS SUBQ SCH ×2 (07:40→20:29)
[2021-09-08] MEDS: amLODIPine 5 MG TABLET PO SCH (07:40)
[2021-09-08] MEDS: Insulin LISPRO 300 UNITS/3 ML VIAL SUBQ SCH ×4 (07:40→20:28)
[2021-09-08] MEDS: Ranolazine 500 MG TAB.ER.12H PO SCH ×2 (07:40→20:29)
[2021-09-08] MEDS ORDERED: Isosorbide MONOnitrate (24 HR) 60 MG TAB.ER.24H PO SCH (09:00)
[2021-09-08] MEDS ORDERED: Tiotropium 10 INH DOSE IH SCH (09:00)
[2021-09-08] MEDS: Budesonide/Formoterol 160/4.5 1 PUFF INH IH SCH ×2 (10:23→22:01)
[2021-09-08] MEDS: Tiotropium 10 INH DOSE IH SCH (10:24)
[2021-09-08] MEDS: *HR* Heparin 5,000 UNIT/ML VIAL SQ SCH (16:46)
[2021-09-08] MEDS: Melatonin 3 MG TABLET PO PRN (20:29)
[2021-09-08] MEDS: traZODone 50 MG TABLET PO SCH (20:29)
[2021-09-09 02:40] LABS: Basophils % 0.4 %; Eosinophils # 0.3 K/mcL (0.0-0.6); Eosinophils % 3.2 %; Hematocrit 37.5 % (37.5-50.1); Hemoglobin 12.9 g/dL (12.9-16.9); Immature Granulocytes % 0.7 % (0-4); Lymphocytes % 35.1 %; Mean Corpuscular HGB Conc 34.4 g/dL (31.6-35.5); Mean Corpuscular Hemoglobin 31.3 pg (28.0-33.3); Mean Platelet Volume 9.6 fL (9.4-12.4); Monocytes # 0.9 K/mcL (0.0-1.3); Neutrophils # 4.2 K/mcL (1.6-8.9); Platelet Count 195 K/mcL (140-400); Red Blood Count 4.12 M/mcL (4.19-5.50); Red Cell Distribution Width 11.9 % (11.5-14.5); Segmented Neutrophils % 49.6 %; White Blood Count 8.5 K/mcL (4.3-11.1)
[2021-09-09 02:59] LABS: Calcium 8.7 mg/dL (8.6-10.3); Potassium 4.1 mEq/L (3.5-5.1)
[2021-09-09] MEDS: *HR* Heparin 5,000 UNIT/ML VIAL SQ SCH ×2 (05:50→16:46)
[2021-09-09] MEDS ORDERED: 0.9 % Sodium Chloride 1,000 ML IVC SCH (07:30)
[2021-09-09] MEDS: amLODIPine 5 MG TABLET PO SCH (07:46)
[2021-09-09] MEDS: Ranolazine 500 MG TAB.ER.12H PO SCH ×2 (07:46→20:19)
[2021-09-09] MEDS: Insulin LISPRO 300 UNITS/3 ML VIAL SUBQ SCH ×4 (07:46→20:20)
[2021-09-09] MEDS: Isosorbide MONOnitrate (24 HR) 60 MG TAB.ER.24H PO SCH (07:46)
[2021-09-09] MEDS: Aspirin 81 MG TAB.CHEW PO SCH (07:46)
[2021-09-09] MEDS: Insulin DETEMIR 100 UNIT/ML X5UNITS SUBQ SCH ×2 (07:48→20:20)
[2021-09-09] MEDS: Budesonide/Formoterol 160/4.5 1 PUFF INH IH SCH ×2 (10:12→21:08)
[2021-09-09] MEDS: Tiotropium 10 INH DOSE IH SCH (10:20)
[2021-09-09 14:31] LABS: Sodium, Urine 48.2 mEq/L
[2021-09-09] MEDS: traZODone 50 MG TABLET PO SCH (20:19)
[2021-09-09] MEDS: Melatonin 3 MG TABLET PO PRN (20:19)
[2021-09-10 02:34] LABS: Basophils % 0.3 %; Eosinophils # 0.2 K/mcL (0.0-0.6); Hematocrit 34.5 % (37.5-50.1); Hemoglobin 12.1 g/dL (12.9-16.9); Immature Granulocytes % 0.4 % (0-4); Lymphocytes # 2.2 K/mcL (0.6-4.6); Lymphocytes % 30.2 %; Mean Corpuscular HGB Conc 35.1 g/dL (31.6-35.5); Mean Corpuscular Hemoglobin 31.8 pg (28.0-33.3); Mean Corpuscular Volume 90.6 fL (83.0-100.0); Mean Platelet Volume 9.5 fL (9.4-12.4); Monocytes # 0.8 K/mcL (0.0-1.3); Monocytes % 10.6 %; Platelet Count 182 K/mcL (140-400); Red Blood Count 3.81 M/mcL (4.19-5.50); Red Cell Distribution Width 11.9 % (11.5-14.5); Segmented Neutrophils % 55.5 %; White Blood Count 7.3 K/mcL (4.3-11.1)
[2021-09-10 02:50] LABS: BUN/Creatinine Ratio 17 (6-26); Blood Urea Nitrogen 18 mg/dL (8-23); Calcium 8.6 mg/dL (8.6-10.3); Carbon Dioxide 25 mEq/L (23-29); Chloride 107 mEq/L (98-107); Glucose 154 mg/dL (70-105); Osmolality,Calculated 289 (280-300); Potassium 4.1 mEq/L (3.5-5.1); Sodium 137 mEq/L (136-145); eGFR For African Americans > 60 (> 60); eGFR For Non-African Americans > 60 (> 60)
[2021-09-10] MEDS: *HR* Heparin 5,000 UNIT/ML VIAL SQ SCH (05:37)
[2021-09-10 07:01] VITALS: BP 147/71; PULSE 71; TEMP 98.2; O2SAT 98
[2021-09-10] MEDS: amLODIPine 5 MG TABLET PO SCH (07:34)
[2021-09-10] MEDS: Ranolazine 500 MG TAB.ER.12H PO SCH (07:34)
[2021-09-10] MEDS: Isosorbide MONOnitrate (24 HR) 60 MG TAB.ER.24H PO SCH (07:34)
[2021-09-10] MEDS: Aspirin 81 MG TAB.CHEW PO SCH (07:34)
[2021-09-10] MEDS: Insulin LISPRO 300 UNITS/3 ML VIAL SUBQ SCH (07:38)
[2021-09-10] MEDS: Insulin DETEMIR 100 UNIT/ML X5UNITS SUBQ SCH (07:38)
[2021-09-10] MEDS: Budesonide/Formoterol 160/4.5 1 PUFF INH IH SCH (08:05)
[2021-09-10] MEDS: Tiotropium 10 INH DOSE IH SCH (08:05)
== END 2021-09-10 10:36 | disposition home or self-care (01) ==
LOC: 2ANU → SUATTDRO 17:24
PROVIDERS: ADMIT Internal Medicine; ATTEND Nurse Practitioner